=== PATIENT | female | born 1965 | race Caucasian/White ===

== ENCOUNTER 2024-04-26 17:04 | Inpatient (IN) ==
[2024-04-26] MEDS: OPTIRAY 320 125ml IV ONE (17:12)
--- NOTE | 2024-04-26 17:28 | Emergency Department Note ---
Impression & Plan Expressive aphasia, Acute right-sided weakness ED Provider Note Diagnosis: Expressive aphasia, slurred speech, right arm and leg drift Disposition: Admission CHIEF COMPLAINT: Expressive aphasia HPI: Patient is a 58-year-old female presenting from work across the street where she started with expressive aphasia and slurred speech. Patient reportedly last seen normal at 4:15 PM today. Patient is not on reported blood thinners. Patient has no history of CVA. Patient well no evaluation in the emergency room now has right arm drift and right leg drift. PAST MEDICAL HISTORY: See Below PAST SURGICAL HISTORY: See Below SOCIAL HISTORY: See Below HOME MEDICATIONS: See Below ALLERGIES: See Below VITALS: See Below PHYSICAL EXAMINATION: GENERAL: Well appearing, well nourished, NAD, non-toxic. EYE EXAM: Normal conjunctiva. OROPHARYNX: Moist mucus membranes. Grossly normal dentition. NECK: Supple, LUNGS: Clear to auscultation. Normal chest wall mechanics. HEART: NSR ABDOMEN: Abdomen soft, non-tender, normo-active bowel sounds, no masses, no rebound or guarding BACK: No CVA TTP. SKIN: No rashes and no bruising. UPPER EXTREMITIES: Upper extremities are grossly normal LOWER EXTREMITIES: Grossly normal, no edema. NEURO EXAM: A&O x3,, slurred speech, expressive aphasia, right arm drift right leg drift, normal sensation in face arms and legs PSYCH: Cooperative MEDICAL DECISION MAKING: History obtained from: Patient ER Course: Patient is a 58-year-old female presenting with expressive aphasia slurred speech and right-sided weakness. Patient symptoms reportedly started 1 hour prior to arrival. Patient CT scan noncontrast negative for intracranial hemorrhage. Patient found to have no large vessel occlusions. Patient's case was immediately discussed with stroke neurology team who evaluated her on the camera at bedside. Patient was offered TNK but declined. 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 Patient did have improvement in her speech while in the emergency room as well as improvement in the drift in her right arm and leg. Patient's case discussed with [facility] hospitalist team. Labs (independently interpreted) are significant for: No electrolyte abnormalities EKG interpretation (independently interpreted): Normal sinus rhythm no ST segment elevation or depression Medications given: Baby aspirin Consultants: Teleneurology Dr. Carmine العراقي evaluated patient on camera for potential TNK. Patient had full evaluation and was given the risk-benefit of TNK and given the option to receive the medication. Patient decided against receiving the medication because her symptoms were improving. Dr. العراقي recommended giving baby aspirin admitting to the hospital for further stroke workup. Triage Nursing notes reviewed and agree them. Vital Signs: reviewed and remarkable for: no significant abnormalities Past Med/Surg History Problem List (Updated 04/26/24 @ 18:30 by Asaf Sanchez DO) Acute right-sided weakness (Acute) Expressive aphasia (Acute) History of tobacco use Asthma Pulmonary nodules Medical History Rotator cuff arthropathy of right shoulder Surgical History Total knee replacement status Family History Mother Cancer Social History Smoking Status: Former smoker Hx Alcohol Use: No Hx Substance Use: No Preferred Language: Yakut Feels Safe at Home: Yes Allergies Allergies Allergy/AdvReac Type Severity Reaction Status Date / Time pollen extracts Allergy Intermediate ITCHY Verified 11/09/23 13:17 EYES, SNEEZING, CONGESTION Home Meds Home Medications Medication Instructions Recorded Confirmed atorvastatin 80 mg tablet 80 mg PO HS 10/11/23 04/26/24 buspirone 7.5 mg tablet 7.5 mg PO BID 10/11/23 04/26/24 cholecalciferol (vitamin D3) 25 25 mcg PO QAM 10/11/23 04/26/24 mcg (1,000 unit) capsule (Vitamin D3) venlafaxine 75 mg capsule,extended 75 mg PO HS 10/11/23 04/26/24 release 24 hr meclizine 12.5 mg tablet 12.5 mg PO TID 04/26/24 04/26/24 Results & Data (ED) Vital Signs Vital Signs - 24 hr 04/26/24 17:00 04/26/24 17:10 04/26/24 18:03 Temperature 36.8 C Temperature Source Oral Pulse Rate 79 Pulse Rate [Right Finger] 88 Respiratory Rate 16 16 Respiratory Effort / Characteristics Non-Labored Spontaneous Respiratory Depth Normal Blood Pressure 130/89 Blood Pressure [Right Arm] 139/84 Blood Pressure Mean 104 Blood Pressure Mean [Right Arm] 102 Pulse Oximetry 95 Sepsis Recent Fever Within 48 Hours No Sepsis New/Unexplained Change in Mental Status Yes Sepsis Action Taken by Nursing No Action Required 04/26/24 18:07 Temperature Temperature Source Pulse Rate 89 Pulse Rate [Right Finger] Respiratory Rate Respiratory Effort / Characteristics Respiratory Depth Blood Pressure Blood Pressure [Right Arm] Blood Pressure Mean Blood Pressure Mean [Right Arm] Pulse Oximetry Sepsis Recent Fever Within 48 Hours Sepsis New/Unexplained Change in Mental Status Sepsis Action Taken by Nursing Laboratory Data 04/26/24 17:27 04/26/24 17:27 Lab Results 04/26/24 04/26/24 04/26/24 Range/Units 17:27 17:28 17:31 WBC 6.24 (4.8-10.8) K/ul RBC 4.19 L (4.20-5.40) M/uL Hgb 12.1 (12.0-16.0) g/dl POC Hgb 12.2 (12.0-16.0) g/dl Hct 36.5 L (37.0-47.0) % POC Hct 36 L (37-47) % MCV 87.1 (80.0-100.0) fL MCH 28.9 (25.0-34.0) pg MCHC 33.2 (32.0-36.0) g/dL RDW Std Deviation 42.1 (36.4-46.3) fL RDW Coeff of Ariel 13.3 (11.5-14.5) % Plt Count 202 (130-400) K/uL MPV 10.3 (9.4-12.4) fL Immature Gran % (Auto) 0.3 % Neut % (Auto) 57.7 % Lymph % (Auto) 26.9 % [place] % (Auto) 9.6 % Eos % (Auto) 4.2 % Baso % (Auto) 1.3 % Neut # (Auto) 3.60 (1.40-6.50) K/uL Lymph # (Auto) 1.68 (1.20-3.40) K/uL [place] # (Auto) 0.60 H (0.11-0.59) K/uL Eos # (Auto) 0.26 (0.00-0.50) K/uL Baso # (Auto) 0.08 (0.00-0.20) K/uL Immature Gran # (Auto) 0.02 (0.01-0.20) K/uL PT 10.9 (9.0-12.0) Seconds INR 1.0 (0.9-1.1) APTT 25 (21-31) Seconds PTT Ratio 0.9 POC Sodium 138 (135-144) mmol/L Sodium 137 (136-145) mmol/L POC Potassium 3.8 (3.3-5.0) mmol/L Potassium 3.8 (3.5-5.1) mmol/L POC Chloride 101 (101-112) mmol/L Chloride 104 (98-107) mmol/L Carbon Dioxide 28 (21-32) mmol/L POC Total CO2 24 (24-31) mmol/L Anion Gap 5 (3-11) POC Anion Gap 18.0 (16-25) mmol/L POC BUN 16 (7-18) mg/dl BUN 16 (6-23) mg/dl Creatinine 0.87 (0.6-1.2) mg/dl POC Creatinine 0.9 (0.6-1.3) mg/dl Est Cr Clr Drug Dosing 77.9 ml/min eGFR 77.18 BUN/Creatinine Ratio 18.4 (10-20) Glucose 110 H (70-99(Fasting)) mg/dl POC Glucose 116 H (70-99) mg/dl POC Glucose (other) 105 H (70-99) mg/dl Calcium 8.9 (8.6-10.3) mg/dl POC Ioniz Calcium Jennifer 1.20 (1.12-1.32) mmol/l Magnesium 1.8 (1.7-2.4) mg/dl Total Bilirubin 0.4 (0.2-1.0) mg/dl AST 16 (13-39) U/L ALT 19 (7-52) U/L Alkaline Phosphatase 66 (34-104) U/L Troponin I High Sens < 2.3 (0-14) pg/ml Total Protein 6.1 (6.0-8.3) gm/dl Albumin 3.7 (3.4-5.0) gm/dl Globulin 2.4 L (2.5-4.0) gm/dl Albumin/Globulin Ratio 1.5 (0.9-2) Administered Medications Discontinued Medications Aspirin (Aspirin 81 Mg Ectab) 81 mg PO NOW STA Stop: 04/26/24 17:55 Last Admin: 04/26/24 18:25 Dose: 81 mg Documented By: MR Ioversol (Optiray 320 125ml) 118 ml IV ONCE ONE Stop: 04/26/24 17:13 Last Admin: 04/26/24 17:12 Dose: 118 ml Documented By: [facility] Data Radiologist's Impression: Head CT 04/26/24 17:10 EXAMINATION: Head CT without CLINICAL HISTORY: PRIORS: None TECHNIQUE: Contiguous axial images were obtained through the head without the use of intravenous contrast. Sagittal and coronal reformations are supplied. FINDINGS: Appropriate parenchymal volume is noted. Weaver-white differentiation is preserved. No edema or midline shift. No intra-axial or extra-axial hemorrhage. Ventricles are normal in size and configuration. Brainstem and cerebellum have a normal appearance. Calvarium unremarkable. Paranasal sinuses and mastoid air cells are well-pneumatized. Globes are intact. No retrobulbar abnormality. IMPRESSION: No CT evidence of an acute intracranial abnormality. Findings discussed with Dr. Sanchez in the emergency department at 5:27 PM on 04/26/2024 Electronically signed by Ale Malhotra 04-26-2024 5:29 PM Head CTA 04/26/24 17:10 EXAM: CTA head with CLINICAL HISTORY: Neurodeficit, acute stroke suspected TECHNIQUE: Contiguous CTA axial images were obtained through the head after the administration of intravenous contrast. Sagittal and coronal reformations are supplied. PRIORS: None FINDINGS: The left vertebral artery is extremely diminutive at the level of the skull base. Right vertebral artery is normal in caliber, both form the basilar artery. No basilar artery aneurysm. [place] is patent. No thrombus or hemodynamically significant stenosis. No aneurysmal dilatation or jesus aneurysm. No enhancing mass in the brain. IMPRESSION: No CTA evidence of an acute vascular abnormality. Electronically signed by Ale Malhotra 04-26-2024 5:41 PM Neck CTA 04/26/24 17:10 EXAM: CT angio neck with con CLINICAL HISTORY: Neurodeficit, acute stroke suspected TECHNIQUE: Contiguous CTA axial images were obtained through the neck with the administration of intravenous contrast. Sagittal and coronal reformations are supplied. MIPS are supplied. COMPARISON: None FINDINGS: A left-sided aortic arch is present. Takeoff of the great vessels is unremarkable with no atherosclerotic disease. No significant atherosclerotic plaque involving the carotid bulb, internal or external carotid arteries. The internal carotid arteries entered the skull base normally with no thrombus or hemodynamically significant stenosis. Left vertebral artery is extremely diminutive throughout its course, not visualized in the mid cervical spine, and reconstitutes at the level of the C2 vertebral body forming the basilar artery with the right vertebral artery. The right vertebral artery is patent with a normal appearance. The right vertebral artery forms the basilar artery. A thyroid cyst is noted on the left. IMPRESSION: 1. 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 2. Patent carotid arteries with no atherosclerotic plaque or hemodynamically significant stenosis. Electronically signed by Ale Malhotra 04-26-2024 5:41 PM Discharge Plan Visit Data Chief Complaint: Stroke Alert ED Provider: Asaf Sanchez Discharge Problem: Expressive aphasia, Acute right-sided weakness Forms Stand Alone Forms: [facility] Companion Prescriptions Prescriptions: No Action atorvastatin 80 mg tablet 80 mg PO HS venlafaxine 75 mg capsule,extended release 24hr 75 mg PO HS buspirone 7.5 mg tablet 7.5 mg PO BID cholecalciferol (vitamin D3) [Vitamin D3] 25 mcg (1,000 unit) Capsule 25 mcg PO QAM meclizine 12.5 mg tablet 12.5 mg PO TID Referrals Referrals: Carrington Hidalgo MD [Primary Care Provider] -
--- NOTE | 2024-04-26 17:41 | CT Scan Report ---
EXAM: CTA head with CLINICAL HISTORY: Neurodeficit, acute stroke suspected TECHNIQUE: Contiguous CTA axial images were obtained through the head after the administration of intravenous contrast. Sagittal and coronal reformations are supplied. PRIORS: None FINDINGS: The left vertebral artery is extremely diminutive at the level of the skull base. Right vertebral artery is normal in caliber, both form the basilar artery. No basilar artery aneurysm. [place] is patent. No thrombus or hemodynamically significant stenosis. No aneurysmal dilatation or jesus aneurysm. No enhancing mass in the brain. IMPRESSION: No CTA evidence of an acute vascular abnormality. Electronically signed by Ale Malhotra 04-26-2024 5:41 PM
--- NOTE | 2024-04-26 17:41 | CT Scan Report ---
EXAM: CT angio neck with con CLINICAL HISTORY: Neurodeficit, acute stroke suspected TECHNIQUE: Contiguous CTA axial images were obtained through the neck with the administration of intravenous contrast. Sagittal and coronal reformations are supplied. MIPS are supplied. COMPARISON: None FINDINGS: A left-sided aortic arch is present. Takeoff of the great vessels is unremarkable with no atherosclerotic disease. No significant atherosclerotic plaque involving the carotid bulb, internal or external carotid arteries. The internal carotid arteries entered the skull base normally with no thrombus or hemodynamically significant stenosis. Left vertebral artery is extremely diminutive throughout its course, not visualized in the mid cervical spine, and reconstitutes at the level of the C2 vertebral body forming the basilar artery with the right vertebral artery. The right vertebral artery is patent with a normal appearance. The right vertebral artery forms the basilar artery. A thyroid cyst is noted on the left. IMPRESSION: 1. 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 2. Patent carotid arteries with no atherosclerotic plaque or hemodynamically significant stenosis. Electronically signed by Ale Malhotra 04-26-2024 5:41 PM
[2024-04-26 17:42] LABS: iSTAT Creatinine 0.9 mg/dl (0.6-1.3); iSTAT Hemoglobin 12.2 g/dl (12.0-16.0); iSTAT Ionized Calcium 1.2 mmol/l (1.12-1.32); iSTAT Potassium 3.8 mmol/L (3.3-5.0)
[2024-04-26 17:54] LABS: Basophils # (auto) 0.08 K/uL (0.00-0.20); Basophils % (auto) 1.3 %; Eosinophils # (auto) 0.26 K/uL (0.00-0.50); Eosinophils % (auto) 4.2 %; Hematocrit (blood only) 36.5 % (37.0-47.0); Hemoglobin 12.1 g/dl (12.0-16.0); Immature Granulocytes # (auto) 0.02 K/uL (0.01-0.20); Immature Granulocytes % (auto) 0.3 %; Lymphocytes # (auto) 1.68 K/uL (1.20-3.40); Lymphocytes % (auto) 26.9 %; Mean Corpuscular Hemoglobin 28.9 pg (25.0-34.0); Mean Corpuscular Hgb Conc 33.2 g/dL (32.0-36.0); Mean Corpuscular Volume 87.1 fL (80.0-100.0); Mean Platelet Volume 10.3 fL (9.4-12.4); Monocytes % (auto) 9.6 %; Neutrophils % (auto) 57.7 %; Platelet Count 202 K/uL (130-400); RDW Coefficient of Variation 13.3 % (11.5-14.5); RDW Standard Deviation 42.1 fL (36.4-46.3); Red Blood Count 4.19 M/uL (4.20-5.40); White Blood Count 6.24 K/ul (4.8-10.8)
[2024-04-26 17:58] LABS: Alanine Aminotransferase 19 U/L (7-52); Albumin Globulin Ratio 1.5 (0.9-2); Albumin Level 3.7 gm/dl (3.4-5.0); Alkaline Phosphatase 66 U/L (34-104); Anion Gap 5 (3-11); Aspartate Aminotransferase 16 U/L (13-39); BUN Creatinine Ratio 18.4 (10-20); Bilirubin,Total 0.4 mg/dl (0.2-1.0); Blood Urea Nitrogen 16 mg/dl (6-23); Calcium 8.9 mg/dl (8.6-10.3); Carbon Dioxide 28 mmol/L (21-32); Chloride 104 mmol/L (98-107); Creatinine Clr Calc Pharmacy 77.9 ml/min; Globulin 2.4 gm/dl (2.5-4.0); Glucose 110 mg/dl (70-99(Fasting)); Magnesium 1.8 mg/dl (1.7-2.4); Potassium 3.8 mmol/L (3.5-5.1); Sodium 137 mmol/L (136-145); Total Protein 6.1 gm/dl (6.0-8.3)
[2024-04-26 18:04] LABS: Troponin I High Sensitivity < 2.3 pg/ml (0-14)
[2024-04-26 18:07] LABS: Partial Thromboplastin Ratio 0.9; Partial Thromboplastin Time 25 Seconds (21-31); Prothrombin Time 10.9 Seconds (9.0-12.0)
[2024-04-26] MEDS: ASPIRIN 81 MG ECTAB PO STA (18:25)
--- NOTE | 2024-04-26 18:29 | History & Physical Report ---
Date of Service April 26, 2024 Assessment & Plan (1) Stroke-like symptoms: (2) Dizziness: Plan: Patient is 58 year old female with PMH dyslipidemia, asthma, anxiety, depression presented to ER with c/o stroke like symptoms that occurred this afternoon. 1615 today with onset dizziness with standing followed by reported garbled speech by co-workers and reported tingling sensation of lips. Intermittent dizziness x 3 days. In ER afebrile, BP: 139/84, P: 88, R: 16, 95% on room air Upon ER arrival was noted to have right arm and right leg drift. Since being in ER has had improvement of her speech and extremity symptoms. Reports frontal ARNOLD and feels exhausted. In ER had neurology telestroke and TNK was discussed however patient chose to defer at this time since having improvement of her symptoms. Glucose: 110, no significant electrolyte abnormality, negative troponin CT head: No CT evidence of an acute intracranial abnormality. CT head: No CTA evidence of an acute vascular abnormality. CTA neck: Extremely diminutive and/or partially occluded left vertebral artery, age-indeterminate. Patent carotid arteries with no atherosclerotic plaque or hemodynamically significant stenosis. DDx: TIA, CVA, vertigo In ER given aspirin 81mg Tele to monitor for arrhythmias Lipid panel, A1c, TSH in AM MRI Brain Echo with bubble study Aspiration precautions PT/OT consult Continue home atorvastatin Start aspirin Allow permissive HTN Neurology consult (3) Dyslipidemia: Plan: Continue home atorvastatin (4) Anxiety and depression: Plan: Continue home venlafaxine, buspirone DVT Prophylaxis SCDs for now Admit telemetry Full Code as per discussion with pt Follows with Dr Carrington Hidalgo in [place], [place] for routine care Pt was seen and care coordinated with Dr Puga. See addendum I spent a total of 65 minutes reviewing notes, outpatient records, labs, medication, coordinating, documenting and providing care for this patient excluding time spent in the performance of separately billed services. History of Present Illness Chief Complaint: stroke like symptoms Primary Care Provider: Carrington Hidalgo MD Patient is 58 year old female with PMH dyslipidemia, asthma, anxiety, depression presented to ER with c/o stroke like symptoms that occurred this afternoon. Tuesday morning woke up for work and getting ready had started with dizziness described as room spinning with nausea and states lowered herself to floor until symptoms eased. She reports went to PCP on Tuesday for the dizziness and was prescribed Meclizine. Reports the dizziness had improved but still present with certain movements. States at work today and stood up and had dizziness described as spinning and felt lightheaded and reports fell against table. Denies LOC. 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 It is reported patient couldn't make a fist with her right hand. She reports tingling of lips and face. No facial droop was reported by co- workers. Upon ER arrival was noted to have right arm and right leg drift. Since being in ER has had improvement of her speech. She states feels exhausted. She reports frontal ARNOLD since being in ER. In ER had neurology telestroke and TNK was discussed however patient chose to defer at this time since having improvement of her symptoms. Further history patient reports a couple of weeks ago had chest pain and reports some increased SOB past couple of weeks with some wheezing and dry cough. Patient states in September 2023 had episode of dizziness, nausea, and diaphoresis that resolved until this week. Denies fever/chills, diaphoresis, V/D/C, vision changes, neck pain, palpitations, rhinorrhea, abdominal pain, extremity edema, rashes, urinary symptoms, hearing loss, tinnitus, seizure like activity, loss control of bowel/bladder, Per chart review history carotid Doppler 11/10/2023: Less than 50% stenosis bilateral internal carotid arteries, antegrade flow bilateral vertebral arteries, bilateral subclavian artery signals normal consistent with no significant arterial occlusion Allergies Allergy/AdvReac Type Severity Reaction Status Date / Time pollen extracts Allergy Intermediate ITCHY Verified 11/09/23 13:17 EYES, SNEEZING, CONGESTION Home Medications Medication Instructions Recorded Confirmed Type atorvastatin 80 mg tablet 80 mg PO HS 10/11/23 04/26/24 History buspirone 7.5 mg tablet 7.5 mg PO BID 10/11/23 04/26/24 History venlafaxine 75 mg capsule,extended 75 mg PO HS 10/11/23 04/26/24 History release 24 hr ascorbic acid (vitamin C) 1,000 mg 1 g PO DAILY 04/26/24 04/26/24 History tablet (Vitamin C) meclizine 12.5 mg tablet 12.5 mg PO TID PRN Dizziness 04/26/24 04/26/24 History Past Med/Surg History Problem List (Updated 04/26/24 @ 19:39 by Polly Farah PA-C) Dyslipidemia Dizziness Stroke-like symptoms Anxiety and depression Acute right-sided weakness (Acute) Expressive aphasia (Acute) History of tobacco use Asthma Pulmonary nodules Medical History Rotator cuff arthropathy of right shoulder Surgical History Total knee replacement status left knee Family History Mother Cancer gastric/stomach Other Heart disease Social History Smoking Status: Former smoker Hx Alcohol Use: No Hx Substance Use: No Preferred Language: Russian Feels Safe at Home: Yes Review of Systems Review of Systems: All systems reviewed & are unremarkable except as noted in HPI & below Physical Exam Physical Exam: PE per Dr Puga Results & Data Results & Data Vital Signs (Past 12 Hours) Vital Signs Temp Pulse Pulse Resp BP BP Pulse Ox 04/26/24 18:07 89 04/26/24 18:03 79 16 130/89 95 04/26/24 17:00 36.8 C 88 16 139/84 Laboratory Results Short CBC 04/26/24 Range/Units 17:27 WBC 6.24 (4.8-10.8) K/ul Hgb 12.1 (12.0-16.0) g/dl Hct 36.5 L (37.0-47.0) % Plt Count 202 (130-400) K/uL BMP 04/26/24 17:27 Sodium 137 Potassium 3.8 Chloride 104 Carbon Dioxide 28 BUN 16 Creatinine 0.87 Glucose 110 H Calcium 8.9 Liver Function 04/26/24 Range/Units 17:27 Total Bilirubin 0.4 (0.2-1.0) mg/dl AST 16 (13-39) U/L ALT 19 (7-52) U/L Alkaline Phosphatase 66 (34-104) U/L Albumin 3.7 (3.4-5.0) gm/dl Diagnostic Findings Head CT 04/26/24 17:10 EXAMINATION: Head CT without CLINICAL HISTORY: PRIORS: None TECHNIQUE: Contiguous axial images were obtained through the head without the use of intravenous contrast. Sagittal and coronal reformations are supplied. FINDINGS: Appropriate parenchymal volume is noted. Weaver-white differentiation is preserved. No edema or midline shift. No intra-axial or extra-axial hemorrhage. Ventricles are normal in size and configuration. Brainstem and cerebellum have a normal appearance. Calvarium unremarkable. Paranasal sinuses and mastoid air cells are well-pneumatized. Globes are intact. No retrobulbar abnormality. IMPRESSION: No CT evidence of an acute intracranial abnormality. Findings discussed with Dr. Sanchez in the emergency department at 5:27 PM on 04/26/2024 Electronically signed by Ale Malhotra 04-26-2024 5:29 PM Head CTA 04/26/24 17:10 EXAM: CTA head with CLINICAL HISTORY: Neurodeficit, acute stroke suspected TECHNIQUE: Contiguous CTA axial images were obtained through the head after the administration of intravenous contrast. Sagittal and coronal reformations are supplied. PRIORS: None FINDINGS: The left vertebral artery is extremely diminutive at the level of the skull base. Right vertebral artery is normal in caliber, both form the basilar artery. No basilar artery aneurysm. [place] is patent. No thrombus or hemodynamically significant stenosis. No aneurysmal dilatation or jesus aneurysm. No enhancing mass in the brain. IMPRESSION: No CTA evidence of an acute vascular abnormality. Electronically signed by Ale Malhotra 04-26-2024 5:41 PM Neck CTA 04/26/24 17:10 EXAM: CT angio neck with con CLINICAL HISTORY: Neurodeficit, acute stroke suspected TECHNIQUE: Contiguous CTA axial images were obtained through the neck with the administration of intravenous contrast. Sagittal and coronal reformations are supplied. MIPS are supplied. COMPARISON: None FINDINGS: A left-sided aortic arch is present. Takeoff of the great vessels is unremarkable with no atherosclerotic disease. No significant atherosclerotic plaque involving the carotid bulb, internal or external carotid arteries. The internal carotid arteries entered the skull base normally with no thrombus or hemodynamically significant stenosis. Left vertebral artery is extremely diminutive throughout its course, not visualized in the mid cervical spine, and reconstitutes at the level of the C2 vertebral body forming the basilar artery with the right vertebral artery. The right vertebral artery is patent with a normal appearance. The right vertebral artery forms the basilar artery. A thyroid cyst is noted on the left. IMPRESSION: 1. 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 2. Patent carotid arteries with no atherosclerotic plaque or hemodynamically significant stenosis. Electronically signed by Ale Malhotra 04-26-2024 5:41 PM ECG Additional Comments: Normal sinus rhythm, no ST elevation per my interpretation Supervising Physician Co-Signing Physician Notes Patient is a 58-year-old female with history of asthma, hyperlipidemia, mood disorder, vitamin D deficiency, pulmonary nodule and other medical problems presents with history of dizziness which he describes as room spinning, associated with nausea which started on Tuesday and was prescribed meclizine which did not help. Patient had similar episode today at around 4:15 PM at work and was noticed to have garbled speech associated with tingling of lips, face, frontal headache, right arm and right leg drift. Patient was evaluated by telestroke and offered TNK which patient deferred. Symptoms currently improved. Family believes her speech is still low but clear currently. Please review HPI for complete details of presentation. I personally reviewed blood work and imaging studies. CT head showed no acute intracranial abnormality. Head CTA showed no evidence of acute vascular abnormality. Neck CTA showed possible partially occluded left vertebral artery age-indeterminate. EKG showed normal sinus rhythm, QTc 437. Physical Exam: Vitals signs as noted above General Appearance: Obese, no apparent distress Head: normocephalic, Atraumatic Eyes: normal inspection, EOMI Neck: supple, Trachea midline Respiratory/Chest: Decreased breath sounds, CTA, No accessory muscle use Cardiovascular: S1, S2, No murmur Abdomen/GI:Soft, Non tender, Bowel sounds present Extremities/Musculoskeletal:normal inspection, no edema Neurologic/Psych:AAOX3, no focal neurological deficits Skin: normal color, warm Strokelike symptoms R/O CVA Dizziness DD: Vertigo, complex migraine Elevated blood pressure likely situational Started on aspirin Continue statin Will obtain complete neurological workup including MRI brain, echo, lipid panel, A1c Neurochecks Neurology consulted Allow permissive hypertension Monitor blood pressure closely PT OT, speech eval Fall precautions Further management based on pending workup I personally interviewed and examined at bedside. Patient's care is coordinated with Polly Farah PA-C. I have reviewed the advanced practitioner's documentation, and I agree with plan of care. Please refer to the documentation above for details of patient's presentation and for discussion of other issues. I spent a total [id number] coordinating, documenting, and providing care for this patient excluding time spent in the performance of separately billed services.
[2024-04-26] MEDS: GADOBUTROL 65ML VIAL IV ONE (21:00)
[2024-04-26] MEDS ORDERED: ONDANSETRON INJ 2 MG/ML 2 ML VIAL IV PRN (21:48)
[2024-04-26] MEDS ORDERED: POLYETHYLENE (MIRALAX) 17 GM PACK PO PRN (21:48)
[2024-04-26] MEDS ORDERED: PHARMACIST DISCHARGE MED REC CONSULT PRN (21:48)
[2024-04-26] MEDS: busPIRone 7.5 MG TAB PO SCH (22:48)
[2024-04-26] MEDS: ACETAMINOPHEN 325 MG TAB PO PRN (22:48)
[2024-04-26] MEDS: ATORVASTATIN 40 MG TAB PO SCH (22:48)
[2024-04-26] MEDS: VENLAFAXINE HCL XR 75 MG CAPXR PO SCH (22:48)
[2024-04-26] MEDS: MECLIZINE HCL 25 MG TAB PO PRN (22:48)
--- NOTE | 2024-04-26 23:16 | Magnetic Resonance Report ---
Exam(s): MRI HEAD W/WO Contrast IV Amt: 8mL Gadavist given IV EXAM: MR Head Without and With Intravenous Contrast CLINICAL HISTORY: Reason for exam: stroke like symptoms. TECHNIQUE: Magnetic resonance images of the head/brain without and with intravenous contrast in multiple planes. CONTRAST: Patient received 8mL Gadavist given IV of IV contrast COMPARISON: References made to prior head CT performed earlier on the same date. FINDINGS: Brain: Subtle T2/flair signal hyperintensity scattered throughout the subcortical and deep white matter consistent with very mild ischemic microangiopathy. No hemorrhage. Ventricles: Unremarkable. No ventriculomegaly. Bones/joints: Unremarkable. No acute fracture. Sinuses: Polyp or mucus retention cyst right ethmoid sinus inflammatory maxillary sinus. No acute sinusitis. Mastoid air cells: Unremarkable as visualized. No mastoid effusion. Orbits: Unremarkable as visualized. IMPRESSION: No acute findings in the head/brain. Mild ischemic microangiopathy Electronically signed by: Carrington Moura MD 04/26/24 23:15 PM
[2024-04-27 07:05] LABS: Hematocrit (blood only) 40.6 % (37.0-47.0); Hemoglobin 13.4 g/dl (12.0-16.0); Mean Corpuscular Volume 87.9 fL (80.0-100.0); Mean Platelet Volume 10.8 fL (9.4-12.4); Platelet Count 213 K/uL (130-400); RDW Coefficient of Variation 13.5 % (11.5-14.5); RDW Standard Deviation 43.4 fL (36.4-46.3); Red Blood Count 4.62 M/uL (4.20-5.40); White Blood Count 5.93 K/ul (4.8-10.8)
[2024-04-27 07:41] LABS: Estimated Average Glucose 126 mg/dl
[2024-04-27 07:46] LABS: Thyroid Stimulating Hormone 2.518 uIu/ml (0.300-4.500)
[2024-04-27 09:53] LABS: Calcium 9.5 mg/dl (8.6-10.3)
[2024-04-27 10:00] LABS: BUN Creatinine Ratio 19.3 (10-20); Chol HDL Ratio 3.8 (0-5); Creatinine Clr Calc Pharmacy 87.7 ml/min
[2024-04-27 10:03] LABS: Potassium 4.2 mmol/L (3.5-5.1)
[2024-04-27] MEDS: ASPIRIN 81 MG ECTAB PO SCH (10:03)
--- NOTE | 2024-04-27 11:34 | Electrocardiogram Report ---
Test Reason : Blood Pressure : */* mmHG Vent. Rate : 94 BPM Atrial Rate : 94 BPM P-R Int : 186 ms QRS Dur : 78 ms QT Int : 350 ms P-R-T Axes : 41 -29 16 degrees QTcB Int : 437 ms Normal sinus rhythm Normal ECG When compared with ECG of 11-Oct-2023 12:10, No significant change was found Confirmed by Semaj Day ([id number]) on 04/27/2024 11:34:37 AM Referred By: REFERRED SELF Confirmed By: Semaj Day
--- NOTE | 2024-04-27 14:50 | Hospitalist Progress Note ---
Date of Service April 27, 2024 Assessment & Plan (1) Stroke-like symptoms: (2) Dizziness: Plan: Patient is 58 year old female with PMH dyslipidemia, asthma, anxiety, depression presented to ER with c/o stroke like symptoms that occurred this afternoon. 1615 today with onset dizziness with standing followed by reported garbled speech by co-workers and reported tingling sensation of lips. Intermittent dizziness x 3 days. In ER afebrile, BP: 139/84, P: 88, R: 16, 95% on room air Upon ER arrival was noted to have right arm and right leg drift. Since being in ER has had improvement of her speech and extremity symptoms. Reports frontal ARNOLD and feels exhausted. In ER had neurology telestroke and TNK was discussed however patient chose to defer at this time since having improvement of her symptoms. Glucose: 110, no significant electrolyte abnormality, negative troponin CT head: No CT evidence of an acute intracranial abnormality. CTA head: No CTA evidence of an acute vascular abnormality. CTA neck: Extremely diminutive and/or partially occluded left vertebral artery, age-indeterminate. Patent carotid arteries with no atherosclerotic plaque or hemodynamically significant stenosis. MRI Brain FINDINGS: Brain: Subtle T2/flair signal hyperintensity scattered throughout the subcortical and deep white matter consistent with very mild ischemic microangiopathy. No hemorrhage. Ventricles: Unremarkable. No ventriculomegaly. Bones/joints: Unremarkable. No acute fracture. Sinuses: Polyp or mucus retention cyst right ethmoid sinus inflammatory maxillary sinus. No acute sinusitis. Mastoid air cells: Unremarkable as visualized. No mastoid effusion. Orbits: Unremarkable as visualized. IMPRESSION: No acute findings in the head/brain. Mild ischemic microangiopathy DDx: TIA, CVA, vertigo In ER given aspirin 81mg Tele to monitor for arrhythmias Lipid panel - LDL 76 A1c 6.0% TSH 2.5 Echo with bubble study - LV normal size, moderate LVH, LV EF 60-65%, no interatrial shunt noted Aspiration precautions PT/OT consult Continue home atorvastatin Start aspirin Neurology consult pending (3) Dyslipidemia: Plan: Continue home atorvastatin (4) Anxiety and depression: Plan: Continue home venlafaxine, buspirone DVT Prophylaxis SCDs for now Admit telemetry Full Code as per discussion with pt Follows with Dr Carrington Hidalgo in [place], [place] for routine care Admission and Anticipated Discharge Date Admission Date: April 26, 2024 Subjective Pt seen in follow up of stroke-like symptoms Other symptoms resolved but pt has persistent dizziness Laying in bed in NAD, but also has headache worked with PT - seems that made her dizziness temporarily worse No fever, chills, chest pain, shortness of breath. No abd. pain n/v Review of Systems Review of Systems: All systems reviewed & are unremarkable except as noted in Subjective Physical Exam Physical Exam: General Appearance: Obese, no apparent distress Head: normocephalic, Atraumatic Eyes: normal inspection, EOMI Neck: supple Respiratory/Chest: Decreased breath sounds, CTA, No accessory muscle use Cardiovascular: S1, S2, No murmur Abdomen/GI:Soft, Non tender, Bowel sounds present Extremities/Musculoskeletal:normal inspection, no edema Neurologic/Psych:AAOX3, speech fluent, no facial asymmetry, moves extremities Skin: warm, dry Results & Data Results & Data Vital Signs (Past 12 Hours) Vital Signs Temp Pulse Pulse Resp BP Pulse Ox O2 Del Method 04/27/24 12:00 36.6 C 80 20 114/72 91 Room Air 04/27/24 08:00 36.6 C 77 20 112/70 91 Room Air 04/27/24 07:05 76 04/27/24 04:00 36.5 C 74 18 114/72 93 Room Air Laboratory Results 04/27/24 04/26/24 04/26/24 Range/Units 06:10 17:31 17:28 WBC 5.93 (4.8-10.8) K/ul RBC 4.62 (4.20-5.40) M/uL Hgb 13.4 (12.0-16.0) g/dl POC Hgb 12.2 (12.0-16.0) g/dl Hct 40.6 (37.0-47.0) % POC Hct 36 L (37-47) % MCV 87.9 (80.0-100.0) fL MCH 29.0 (25.0-34.0) pg MCHC 33.0 (32.0-36.0) g/dL RDW Std Deviation 43.4 (36.4-46.3) fL RDW Coeff of Ariel 13.5 (11.5-14.5) % Plt Count 213 (130-400) K/uL MPV 10.8 (9.4-12.4) fL Immature Gran % (Auto) % Neut % (Auto) % Lymph % (Auto) % [place] % (Auto) % Eos % (Auto) % Baso % (Auto) % Neut # (Auto) (1.40-6.50) K/uL Lymph # (Auto) (1.20-3.40) K/uL [place] # (Auto) (0.11-0.59) K/uL Eos # (Auto) (0.00-0.50) K/uL Baso # (Auto) (0.00-0.20) K/uL Immature Gran # (Auto) (0.01-0.20) K/uL PT (9.0-12.0) Seconds INR (0.9-1.1) APTT (21-31) Seconds PTT Ratio POC Sodium 138 (135-144) mmol/L Sodium 142 (136-145) mmol/L POC Potassium 3.8 (3.3-5.0) mmol/L Potassium 4.2 (3.5-5.1) mmol/L POC Chloride 101 (101-112) mmol/L Chloride 109 H (98-107) mmol/L Carbon Dioxide 24 (21-32) mmol/L POC Total CO2 24 (24-31) mmol/L Anion Gap 9 (3-11) POC Anion Gap 18.0 (16-25) mmol/L POC BUN 16 (7-18) mg/dl BUN 16 (6-23) mg/dl Creatinine 0.83 (0.6-1.2) mg/dl POC Creatinine 0.9 (0.6-1.3) mg/dl Est Cr Clr Drug Dosing 87.7 ml/min eGFR 81.66 BUN/Creatinine Ratio 19.3 (10-20) Glucose 105 H (70-99(Fasting)) mg/dl POC Glucose 116 H (70-99) mg/dl POC Glucose (other) 105 H (70-99) mg/dl Estimat Average Glucose 126 mg/dl Hemoglobin A1c 6.0 H (4.5-5.6) % Calcium 9.5 (8.6-10.3) mg/dl POC Ioniz Calcium Jennifer 1.20 (1.12-1.32) mmol/l Magnesium (1.7-2.4) mg/dl Total Bilirubin (0.2-1.0) mg/dl AST (13-39) U/L ALT (7-52) U/L Alkaline Phosphatase (34-104) U/L Troponin I High Sens (0-14) pg/ml Total Protein (6.0-8.3) gm/dl Albumin (3.4-5.0) gm/dl Globulin (2.5-4.0) gm/dl Albumin/Globulin Ratio (0.9-2) Triglycerides 131 (0-150) mg/dl Cholesterol 139 (0-200) mg/dl LDL Cholesterol, Calc 76 mg/dl VLDL Cholesterol, Calc 26 (0-30) mg/dl HDL Cholesterol 37 mg/dl Cholesterol/HDL Ratio 3.8 (0-5) TSH 2.518 (0.300-4.500) uIu/ml Blood Type Antibody Screen 04/26/24 Range/Units 17:27 WBC 6.24 (4.8-10.8) K/ul RBC 4.19 L (4.20-5.40) M/uL Hgb 12.1 (12.0-16.0) g/dl POC Hgb (12.0-16.0) g/dl Hct 36.5 L (37.0-47.0) % POC Hct (37-47) % MCV 87.1 (80.0-100.0) fL MCH 28.9 (25.0-34.0) pg MCHC 33.2 (32.0-36.0) g/dL RDW Std Deviation 42.1 (36.4-46.3) fL RDW Coeff of Ariel 13.3 (11.5-14.5) % Plt Count 202 (130-400) K/uL MPV 10.3 (9.4-12.4) fL Immature Gran % (Auto) 0.3 % Neut % (Auto) 57.7 % Lymph % (Auto) 26.9 % [place] % (Auto) 9.6 % Eos % (Auto) 4.2 % Baso % (Auto) 1.3 % Neut # (Auto) 3.60 (1.40-6.50) K/uL Lymph # (Auto) 1.68 (1.20-3.40) K/uL [place] # (Auto) 0.60 H (0.11-0.59) K/uL Eos # (Auto) 0.26 (0.00-0.50) K/uL Baso # (Auto) 0.08 (0.00-0.20) K/uL Immature Gran # (Auto) 0.02 (0.01-0.20) K/uL PT 10.9 (9.0-12.0) Seconds INR 1.0 (0.9-1.1) APTT 25 (21-31) Seconds PTT Ratio 0.9 POC Sodium (135-144) mmol/L Sodium 137 (136-145) mmol/L POC Potassium (3.3-5.0) mmol/L Potassium 3.8 (3.5-5.1) mmol/L POC Chloride (101-112) mmol/L Chloride 104 (98-107) mmol/L Carbon Dioxide 28 (21-32) mmol/L POC Total CO2 (24-31) mmol/L Anion Gap 5 (3-11) POC Anion Gap (16-25) mmol/L POC BUN (7-18) mg/dl BUN 16 (6-23) mg/dl Creatinine 0.87 (0.6-1.2) mg/dl POC Creatinine (0.6-1.3) mg/dl Est Cr Clr Drug Dosing 77.9 ml/min eGFR 77.18 BUN/Creatinine Ratio 18.4 (10-20) Glucose 110 H (70-99(Fasting)) mg/dl POC Glucose (70-99) mg/dl POC Glucose (other) (70-99) mg/dl Estimat Average Glucose mg/dl Hemoglobin A1c (4.5-5.6) % Calcium 8.9 (8.6-10.3) mg/dl POC Ioniz Calcium Jennifer (1.12-1.32) mmol/l Magnesium 1.8 (1.7-2.4) mg/dl Total Bilirubin 0.4 (0.2-1.0) mg/dl AST 16 (13-39) U/L ALT 19 (7-52) U/L Alkaline Phosphatase 66 (34-104) U/L Troponin I High Sens < 2.3 (0-14) pg/ml Total Protein 6.1 (6.0-8.3) gm/dl Albumin 3.7 (3.4-5.0) gm/dl Globulin 2.4 L (2.5-4.0) gm/dl Albumin/Globulin Ratio 1.5 (0.9-2) Triglycerides (0-150) mg/dl Cholesterol (0-200) mg/dl LDL Cholesterol, Calc mg/dl VLDL Cholesterol, Calc (0-30) mg/dl HDL Cholesterol mg/dl Cholesterol/HDL Ratio (0-5) TSH (0.300-4.500) uIu/ml Blood Type A Positive Antibody Screen NEGATIVE Medications Administered Current Inpatient Medications Acetaminophen (Acetaminophen 325 Mg Tab) 650 mg PO Q4H PRN PRN Reason: Pain or Fever Stop: 05/26/24 21:47 Last Admin: 04/27/24 10:04 Dose: 650 mg Aspirin (Aspirin 81 Mg Ectab) 81 mg PO DAILY [facility] Stop: 05/27/24 08:59 Last Admin: 04/27/24 10:03 Dose: 81 mg Atorvastatin Calcium (Atorvastatin 40 Mg Tab) 80 mg PO HS [facility] Stop: 05/26/24 21:47 Last Admin: 04/26/24 22:48 Dose: 80 mg Buspirone HCl (Buspirone 7.5 Mg Tab) 7.5 mg PO BID [facility] Stop: 05/26/24 21:47 Last Admin: 04/27/24 10:02 Dose: 7.5 mg Meclizine HCl (Meclizine Hcl 25 Mg Tab) 25 mg PO Q6H PRN PRN Reason: Dizziness or Vertigo Stop: 05/26/24 21:47 Last Admin: 04/27/24 10:10 Dose: 25 mg Miscellaneous Information (Pharmacist Discharge Med Rec Consult) 1 each N/A UD PRN PRN Reason: Consult Stop: 05/26/24 21:47 Ondansetron HCl (Ondansetron Inj 2 Mg/Ml 2 Ml Vial) 4 mg IV Q6H PRN PRN Reason: Nausea Stop: 05/26/24 21:47 Polyethylene Glycol (Polyethylene (Miralax) 17 Gm Pack) 17 gm PO DAILY PRN PRN Reason: Constipation Stop: 05/26/24 21:47 Venlafaxine HCl (Venlafaxine Hcl Xr 75 Mg Capxr) 75 mg PO HS [facility] Stop: 05/26/24 21:47 Last Admin: 04/26/24 22:48 Dose: 75 mg
[2024-04-27] MEDS: MAGNESIUM SULFATE / D5W 1 GM/100 ML BAG IV ONE (15:59)
[2024-04-27] MEDS: diphenhydrAMINE 50 MG/ML VIAL IV STA (15:59)
[2024-04-27] MEDS: KETOROLAC TROMETHAMINE 15 MG/ML VIAL IV STA (15:59)
--- NOTE | 2024-04-27 16:04 | Neurology Consultation ---
Date of Consultation April 27, 2024 Assessment & Plan (1) Dizziness: Amaya Ardon is a 58 yo F presenting with dizziness and transient neurologic symptoms without any cause found on testing. MRI is unremarkable, CTA reveals a diminutive LVA, likely anatomic variant. Suggest she remain on aspirin but suspect her symptoms are due to migraine. would trial a migraine cocktail. She can otherwise follow-up with us as an outpatient for further investigation if symptoms persist. -- Migraine cocktail - compazine, benadryl, toradol and magnesium -- Aspirin 81mg daily -- Can continue statin -- Ongoing therapy evals -- Neurology follow-up Telehealth Consultation Telehealth Information Telehealth Information: I performed this visit using a real-time telehealth connection between my location and the patients location ([facility]). After connecting through interactive tele-video, patient was identified by name and date of and/or wristband check.Patient (or authorized healthcare rep resentative) was informed that this was a telemedicine visit and it was being conducted confidentially over secure lines. My office door was closed and no one else was present in the room with me.Patient (or authorized healthcare technology sales representative) provided consent to proceed with the visit, expressed an understanding of privacy and security of the telemedicine visit, and gave permission to have a hospital technology sales representative in the room in order to assist with the visit and to conduct portions of the visit, as needed. I informed the patient (or authorized healthcare technology sales representative) that I reviewed their record and presented the opportunity for them to ask any questions regarding the visit today. The patient agreed to participate. History of Present Illness Reason for Consultation: Dizziness Requesting Physician: Dr. Burns Attending Physician: Catalino Burns MD History of Present Illness Amaya Ardon is a 58 yo F presenting with dizziness, headache and transient R sided numbness, weakness and slurred speech. She reportedly had similar dizziness in the past which resolved. Yesterday when she was dizzy she also had the associated numbness and weakness. She was seen in the ED by telestroke and TNK was not given. She reports having had a different episode this year with concern for a cardiac event but testing was negative. She has no hx of migraine or frequent headache. She was on aspirin around the time of the cardiac event. She also takes meclizine for dizziness which does seem to help. She felt well today until working with PT when she became dizzy again. Allergies Allergy/AdvReac Type Severity Reaction Status Date / Time pollen extracts Allergy Intermediate ITCHY Verified 11/09/23 13:17 EYES, SNEEZING, CONGESTION Home Medications Medication Instructions Recorded Confirmed Type atorvastatin 80 mg tablet 80 mg PO HS 10/11/23 04/26/24 History buspirone 7.5 mg tablet 7.5 mg PO BID 10/11/23 04/26/24 History venlafaxine 75 mg capsule,extended 75 mg PO HS 10/11/23 04/26/24 History release 24 hr ascorbic acid (vitamin C) 1,000 mg 1 g PO DAILY 04/26/24 04/26/24 History tablet (Vitamin C) meclizine 12.5 mg tablet 12.5 mg PO TID PRN Dizziness 04/26/24 04/26/24 History Patient History Medical History Rotator cuff arthropathy of right shoulder Surgical History Total knee replacement status left knee Family History Mother Cancer gastric/stomach Other Heart disease Social History Smoking Status: Former smoker Smoking End Date: 8 years ago; Hx Alcohol Use: No Hx Substance Use: No Preferred Language: Urdu Communication Ability: Effective Deicer Finisher Required: No Beliefs That Will Affect Care: None Current Living Situation: Spouse Other Information That Helps Us Care for You: No Feels Safe at Home: Yes Safety Concerns: Feels Safe At This Time Assistive Devices: Glasses Review of Systems +dizziness, frontal headache Physical Exam Neurological Examination: Mental Status: Awake and alert. Oriented to person, place, and time. Fluent. Comprehension intact. Affect appropriate. Cranial Nerves: II: pupils 3/3 to 2/2, kelley grossly intact. III/IV/: Versions intact without nystagmus, no gaze preference. V: Facial sensation symmetric to light touch VII: Facial expression symmetric Motor: Strength was symmetric and antigravity throughout. Pronator drift was absent. There were no abnormal movements. Coordination: Finger to nose and heel to alexander were intact. Reflexes: Unable to assess over telemedicine Results & Data Vital Signs (Past 12 Hours) Vital Signs Temp Pulse Pulse Resp BP Pulse Ox O2 Del Method 04/27/24 15:09 36.4 C L 92 H 16 124/77 94 Room Air 04/27/24 12:00 36.6 C 80 20 114/72 91 Room Air 04/27/24 08:00 36.6 C 77 20 112/70 91 Room Air 04/27/24 07:05 76 04/27/24 04:00 36.5 C 74 18 114/72 93 Room Air Laboratory Results Abnormal lab results 04/26/24 04/26/24 04/26/24 Range/Units 17:27 17:28 17:31 RBC 4.19 L (4.20-5.40) M/uL Hct 36.5 L (37.0-47.0) % POC Hct 36 L (37-47) % [place] # (Auto) 0.60 H (0.11-0.59) K/uL Chloride (98-107) mmol/L Glucose 110 H (70-99(Fasting)) mg/dl POC Glucose 116 H (70-99) mg/dl POC Glucose (other) 105 H (70-99) mg/dl Hemoglobin A1c (4.5-5.6) % Globulin 2.4 L (2.5-4.0) gm/dl 04/27/24 Range/Units 06:10 RBC (4.20-5.40) M/uL Hct (37.0-47.0) % POC Hct (37-47) % [place] # (Auto) (0.11-0.59) K/uL Chloride 109 H (98-107) mmol/L Glucose 105 H (70-99(Fasting)) mg/dl POC Glucose (70-99) mg/dl POC Glucose (other) (70-99) mg/dl Hemoglobin A1c 6.0 H (4.5-5.6) % Globulin (2.5-4.0) gm/dl Diagnostic Findings Head CT 04/26/24 17:10 EXAMINATION: Head CT without CLINICAL HISTORY: PRIORS: None TECHNIQUE: Contiguous axial images were obtained through the head without the use of intravenous contrast. Sagittal and coronal reformations are supplied. FINDINGS: Appropriate parenchymal volume is noted. Weaver-white differentiation is preserved. No edema or midline shift. No intra-axial or extra-axial hemorrhage. Ventricles are normal in size and configuration. Brainstem and cerebellum have a normal appearance. Calvarium unremarkable. Paranasal sinuses and mastoid air cells are well-pneumatized. Globes are intact. No retrobulbar abnormality. IMPRESSION: No CT evidence of an acute intracranial abnormality. Findings discussed with Dr. Sanchez in the emergency department at 5:27 PM on 04/26/2024 Electronically signed by Ale Malhotra 04-26-2024 5:29 PM Head CTA 04/26/24 17:10 EXAM: CTA head with CLINICAL HISTORY: Neurodeficit, acute stroke suspected TECHNIQUE: Contiguous CTA axial images were obtained through the head after the administration of intravenous contrast. Sagittal and coronal reformations are supplied. PRIORS: None FINDINGS: The left vertebral artery is extremely diminutive at the level of the skull base. Right vertebral artery is normal in caliber, both form the basilar artery. No basilar artery aneurysm. [place] is patent. No thrombus or hemodynamically significant stenosis. No aneurysmal dilatation or jesus aneurysm. No enhancing mass in the brain. IMPRESSION: No CTA evidence of an acute vascular abnormality. Electronically signed by Ale Malhotra 04-26-2024 5:41 PM Neck CTA 04/26/24 17:10 EXAM: CT angio neck with con CLINICAL HISTORY: Neurodeficit, acute stroke suspected TECHNIQUE: Contiguous CTA axial images were obtained through the neck with the administration of intravenous contrast. Sagittal and coronal reformations are supplied. MIPS are supplied. COMPARISON: None FINDINGS: A left-sided aortic arch is present. Takeoff of the great vessels is unremarkable with no atherosclerotic disease. No significant atherosclerotic plaque involving the carotid bulb, internal or external carotid arteries. The internal carotid arteries entered the skull base normally with no thrombus or hemodynamically significant stenosis. Left vertebral artery is extremely diminutive throughout its course, not visualized in the mid cervical spine, and reconstitutes at the level of the C2 vertebral body forming the basilar artery with the right vertebral artery. The right vertebral artery is patent with a normal appearance. The right vertebral artery forms the basilar artery. A thyroid cyst is noted on the left. IMPRESSION: 1. 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 2. Patent carotid arteries with no atherosclerotic plaque or hemodynamically significant stenosis. Electronically signed by Ale Malhotra 04-26-2024 5:41 PM Brain MRI 04/26/24 19:34 Exam(s): MRI HEAD W/WO Contrast IV Amt: 8mL Gadavist given IV EXAM: MR Head Without and With Intravenous Contrast CLINICAL HISTORY: Reason for exam: stroke like symptoms. TECHNIQUE: Magnetic resonance images of the head/brain without and with intravenous contrast in multiple planes. CONTRAST: Patient received 8mL Gadavist given IV of IV contrast COMPARISON: References made to prior head CT performed earlier on the same date. FINDINGS: Brain: Subtle T2/flair signal hyperintensity scattered throughout the subcortical and deep white matter consistent with very mild ischemic microangiopathy. No hemorrhage. Ventricles: Unremarkable. No ventriculomegaly. Bones/joints: Unremarkable. No acute fracture. Sinuses: Polyp or mucus retention cyst right ethmoid sinus inflammatory maxillary sinus. No acute sinusitis. Mastoid air cells: Unremarkable as visualized. No mastoid effusion. Orbits: Unremarkable as visualized. IMPRESSION: No acute findings in the head/brain. Mild ischemic microangiopathy Electronically signed by: Carrington Moura MD 04/26/24 23:15 PM
[2024-04-27] MEDS: PROCHLORPERAZINE 5 MG/ML 2 ML VIAL IV STA (16:12)
[2024-04-27] MEDS: PROCHLORPERAZINE 10 MG in SYRINGE 8 ML IV ONE (16:14)
[2024-04-28 07:42] LABS: Hematocrit (blood only) 41.2 % (37.0-47.0); Hemoglobin 13.6 g/dl (12.0-16.0); Mean Corpuscular Volume 87.8 fL (80.0-100.0); Mean Platelet Volume 10.4 fL (9.4-12.4); Platelet Count 209 K/uL (130-400); RDW Coefficient of Variation 13.5 % (11.5-14.5); RDW Standard Deviation 43.1 fL (36.4-46.3); Red Blood Count 4.69 M/uL (4.20-5.40); White Blood Count 6.51 K/ul (4.8-10.8)
[2024-04-28 07:56] LABS: BUN Creatinine Ratio 26.1 (10-20); Calcium 9.3 mg/dl (8.6-10.3); Creatinine Clr Calc Pharmacy 82.7 ml/min; Magnesium 2.1 mg/dl (1.7-2.4); Phosphorus 3.5 mg/dl (2.5-4.9); Potassium 4.3 mmol/L (3.5-5.1)
--- NOTE | 2024-04-28 14:22 | Discharge Summary ---
Date of Service April 28, 2024 Admission HPI Per Admitting Provider Patient is 58 year old female with PMH dyslipidemia, asthma, anxiety, depression presented to ER with c/o stroke like symptoms that occurred this afternoon. Tuesday morning woke up for work and getting ready had started with dizziness described as room spinning with nausea and states lowered herself to floor until symptoms eased. She reports went to PCP on Tuesday for the dizziness and was prescribed Meclizine. Reports the dizziness had improved but still present with certain movements. States at work today and stood up and had dizziness described as spinning and felt lightheaded and reports fell against table. Denies LOC. 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 It is reported patient couldn't make a fist with her right hand. She reports tingling of lips and face. No facial droop was reported by co- workers. Upon ER arrival was noted to have right arm and right leg drift. Since being in ER has had improvement of her speech. She states feels exhausted. She reports frontal ARNOLD since being in ER. In ER had neurology telestroke and TNK was discussed however patient chose to defer at this time since having improvement of her symptoms. Further history patient reports a couple of weeks ago had chest pain and reports some increased SOB past couple of weeks with some wheezing and dry cough. Patient states in September 2023 had episode of dizziness, nausea, and diaphoresis that resolved until this week. Denies fever/chills, diaphoresis, V/D/C, vision changes, neck pain, palpitations, rhinorrhea, abdominal pain, extremity edema, rashes, urinary symptoms, hearing loss, tinnitus, seizure like activity, loss control of bowel/bladder, Per chart review history carotid Doppler 11/10/2023: Less than 50% stenosis bilateral internal carotid arteries, antegrade flow bilateral vertebral arteries, bilateral subclavian artery signals normal consistent with no significant arterial occlusion Admission Exam Per Admitting Provider General Appearance: Obese, no apparent distress Head: normocephalic, Atraumatic Eyes: normal inspection, EOMI Neck: supple, Trachea midline Respiratory/Chest: Decreased breath sounds, CTA, No accessory muscle use Cardiovascular: S1, S2, No murmur Abdomen/GI:Soft, Non tender, Bowel sounds present Extremities/Musculoskeletal:normal inspection, no edema Neurologic/Psych:AAOX3, no focal neurological deficits Skin: normal color, warm Principal Diagnosis Dizziness, stroke-like symptoms Discharge Exam General Appearance: Obese, no apparent distress Head: normocephalic, Atraumatic Eyes: normal inspection, EOMI Neck: supple Respiratory/Chest: Decreased breath sounds, CTA, No accessory muscle use Cardiovascular: S1, S2, No murmur Abdomen/GI:Soft, Non tender, Bowel sounds present Extremities/Musculoskeletal:normal inspection, no edema Neurologic/Psych:AAOX3, speech fluent, no facial asymmetry, moves extremities Skin: warm, dry Discharge Data Allergies Allergy/AdvReac Type Severity Reaction Status Date / Time pollen extracts Allergy Intermediate ITCHY Verified 11/09/23 13:17 EYES, SNEEZING, CONGESTION Consultations 04/26/24 18:26 ED Decision to Admit Stat 04/26/24 21:48 Consult Neurology Routine Ordered Studies 04/26/24 17:10 CT angio head w con Stat FINDINGS: The left vertebral artery is extremely diminutive at the level of the skull base. Right vertebral artery is normal in caliber, both form the basilar artery. No basilar artery aneurysm. [place] is patent. No thrombus or hemodynamically significant stenosis. No aneurysmal dilatation or jesus aneurysm. No enhancing mass in the brain. IMPRESSION: No CTA evidence of an acute vascular abnormality. CT angio neck with con Stat FINDINGS: A left-sided aortic arch is present. Takeoff of the great vessels is unremarkable with no atherosclerotic disease. No significant atherosclerotic plaque involving the carotid bulb, internal or external carotid arteries. The internal carotid arteries entered the skull base normally with no thrombus or hemodynamically significant stenosis. Left vertebral artery is extremely diminutive throughout its course, not visualized in the mid cervical spine, and reconstitutes at the level of the C2 vertebral body forming the basilar artery with the right vertebral artery. The right vertebral artery is patent with a normal appearance. The right vertebral artery forms the basilar artery. A thyroid cyst is noted on the left. IMPRESSION: 1. 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 2. Patent carotid arteries with no atherosclerotic plaque or hemodynamically significant stenosis. CT head/brain wo con Stat FINDINGS: Appropriate parenchymal volume is noted. Weaver-white differentiation is preserved. No edema or midline shift. No intra-axial or extra-axial hemorrhage. Ventricles are normal in size and configuration. Brainstem and cerebellum have a normal appearance. Calvarium unremarkable. Paranasal sinuses and mastoid air cells are well-pneumatized. Globes are intact. No retrobulbar abnormality. IMPRESSION: No CT evidence of an acute intracranial abnormality. 04/26/24 19:34 MR brain wo/w con Routine FINDINGS: Brain: Subtle T2/flair signal hyperintensity scattered throughout the subcortical and deep white matter consistent with very mild ischemic microangiopathy. No hemorrhage. Ventricles: Unremarkable. No ventriculomegaly. Bones/joints: Unremarkable. No acute fracture. Sinuses: Polyp or mucus retention cyst right ethmoid sinus inflammatory maxillary sinus. No acute sinusitis. Mastoid air cells: Unremarkable as visualized. No mastoid effusion. Orbits: Unremarkable as visualized. IMPRESSION: No acute findings in the head/brain. Mild ischemic microangiopathy Hospital Course (1) Stroke-like symptoms: (2) Dizziness: Patient is 58 year old female with PMH dyslipidemia, asthma, anxiety, depression presented to ER with c/o stroke like symptoms that occurred this afternoon. 1615 today with onset dizziness with standing followed by reported garbled speech by co-workers and reported tingling sensation of lips. Intermittent dizziness x 3 days. In ER afebrile, BP: 139/84, P: 88, R: 16, 95% on room air Upon ER arrival was noted to have right arm and right leg drift. Since being in ER has had improvement of her speech and extremity symptoms. Reports frontal ARNOLD and feels exhausted. In ER had neurology telestroke and TNK was discussed however patient chose to defer at this time since having improvement of her symptoms. Glucose: 110, no significant electrolyte abnormality, negative troponin CT head: No CT evidence of an acute intracranial abnormality. CTA head: No CTA evidence of an acute vascular abnormality. CTA neck: Extremely diminutive and/or partially occluded left vertebral artery, age-indeterminate. Patent carotid arteries with no atherosclerotic plaque or hemodynamically significant stenosis. MRI Brain FINDINGS: Brain: Subtle T2/flair signal hyperintensity scattered throughout the subcortical and deep white matter consistent with very mild ischemic microangiopathy. No hemorrhage. Ventricles: Unremarkable. No ventriculomegaly. Bones/joints: Unremarkable. No acute fracture. Sinuses: Polyp or mucus retention cyst right ethmoid sinus inflammatory maxillary sinus. No acute sinusitis. Mastoid air cells: Unremarkable as visualized. No mastoid effusion. Orbits: Unremarkable as visualized. IMPRESSION: No acute findings in the head/brain. Mild ischemic microangiopathy DDx: TIA, CVA, vertigo In ER given aspirin 81mg Tele to monitor for arrhythmias Lipid panel - LDL 76 A1c 6.0% TSH 2.5 Echo with bubble study - LV normal size, moderate LVH, LV EF 60-65%, no interatrial shunt noted Aspiration precautions PT/OT consult Continue home atorvastatin Start aspirin Neurology consulted Dizziness: 58 yo F presenting with dizziness and transient neurologic symptoms without any cause found on testing. MRI is unremarkable, CTA reveals a diminutive LVA, likely anatomic variant. Suggest she remain on aspirin but suspect her symptoms are due to migraine. would trial a migraine cocktail. She can otherwise follow- up with us as an outpatient for further investigation if symptoms persist. -- Migraine cocktail - compazine, benadryl, toradol and magnesium -- Aspirin 81mg daily -- Can continue statin -- Ongoing therapy evals -- Neurology follow-up 04/28 Pt is feeling much better today. Says headache resolved after getting migraine cocktail yesterday. She is also free of dizziness today and would like to go home. (3) Dyslipidemia: Continue home atorvastatin (4) Anxiety and depression: Continue home venlafaxine, buspirone Total Time Total Time Spent Total Time Spent (In Minutes): 40 Discharge Plan Discharge Items Patient Disposition: Home - Self-Care Reason For Visit: STROKE LIKE SYMPTOMS Discharge Diagnosis: Dizziness, stroke-like symptoms Activity: Per Instructions section Non-emergency contact: Primary Care Provider and Neurologist Call non-emergency contact if: you have any medication questions and your sympto ms worsen Follow-up/Referrals: Carrington Hidalgo MD [Primary Care Provider] - Diet: Heart Healthy Addtl Attending Provider Instructions: Follow up with primary care doctor within 1-2 weeks. Continue taking aspirin and atorvastatin. You can also follow up with neurology if your symptoms recur/ worsen. Take meclizine as needed as prescribed. Pending Studies at Discharge: No Stand-Alone Forms: My [employer], Smoking Cessation Medications and DC Order Prescriptions: New aspirin 81 mg Tablet,Delayed Release (Dr/Ec) 81 mg PO DAILY Qty: 30 0RF Continued atorvastatin 80 mg tablet 80 mg PO HS venlafaxine 75 mg capsule,extended release 24hr 75 mg PO HS buspirone 7.5 mg tablet 7.5 mg PO BID meclizine 12.5 mg tablet 12.5 mg PO TID PRN (Reason: Dizziness) Rx Instructions: started 04/24/24 ascorbic acid (vitamin C) [Vitamin C] 1,000 mg Tablet 1 g PO DAILY Discharge Orders: Discharge Order (Routine); Ordered 04/28/24 Ordered By: Catalino Qiu/Other Patient Handouts: Prediabetes, 5 Steps for Eating Healthier Admission Data Admit Date/Time: 04/26/24 18:50 Attending Provider: Catalino Burns Admit Provider: Yasmani Puga Primary Care Provider: Carrington Hidalgo Other Providers: Yasmani Puga; Mj Frazier
--- OUTSIDE RECORDS SUMMARY | 2024-04-29 04:49 | External Medical Summary | Continuity of Care Document ---
Author Name Unknown Organization [facility] [address] [facility] [address] [place] [phone] Care Team Providers Care Jukebox Routeman Name Role Phone ErisJohanne Primary Care Physician [phone] Encounter [facility] [id number] Date(s): 11/23/23 - 11/23/23 [facility] [address] [facility] [address] [facility] [address] [place] [address] [phone] Encounter Diagnosis HLD (hyperlipidemia)(Discharge Diagnosis) - 11/23/23 Discharge Disposition: Home or Self Care Attending Physician: DO Marquez Allison B Allergies, Adverse Reactions, Alerts No Known Medication Allergies Assessment and Plan Extracted from: Title:Office Visit Note Author:DO Weldon Nicho las Date:11/23/23 1.HLD (hyperlipidemia) Chronic condition, at goal Goal: Maintain cholesterol levels Data:lipid panelreviewed Plan: Continue atorvastatin daily Medications atorvastatin 80 mg oral tablet Start: 07/06/23 3:11:00 PM EST, 1 tab, PO, Daily Start Date: 07/06/23 Status: Ordered BuSpar Start: 07/06/23 3:10:00 PM EST, 10 mg =, PO, bid Start Date: 07/06/23 Status: Ordered Effexor Start: 07/06/23 3:10:00 PM EST, 75 mg =, PO, Daily Start Date: 07/06/23 Status: Ordered Vitamin C Start: 07/06/23 3:11:00 PM EST Start Date: 07/06/23 Status: Ordered Vitamin D3 Start: 07/06/23 3:11:00 PM EST Start Date: 07/06/23 Status: Ordered Mental Status 11/23/23 Barriers to Learning one year None evide nt Mandatory Health Literacy Documentation Yes Health Literacy Communication Barriers N ever Primary Language Bangladeshi Problem List Condition Confirmation Course Effective Dates Status Health St atus Informant Atypical chest pain Confirmed Active HLD (hyperlipidemia) Confirmed Active Diagnosis Diagnosis Type Effective Dates [facility] HLD (hyperlipidemia) Discharge Diagnosis 11/23/23 Non-Specified Vital Signs Most recent to oldest [Reference Range]: 1 Temperature [36.5-37.9 DegC] 36.7 DegC (11/23/23 11:18 AM) Heart Rate 84 bpm (11/23/23 11:18 AM) Respiratory Rate 16 br/min (11/23/23 11:18 AM) Blood Pressure 126/78mmHg (11/23/23 11:18 AM) Cuff Pulse Pressure 48 mmHg (11/23/23 11:18 AM) Social History Social History Type Response Smoking Status Former Smoker, quit > 1 yr Sex Female FCM Outpt Note * DO Weldon Nicholas: PERFORM DO Marquez Allison B: MODIFY Event Display: FCM Outpt Note Authored Date: [id number] Chief Complaint forms completion for school History of Present Illness 58 yo female here for follow up. No acute complaints today. Denies ARNOLD, CP, SOB, N/V/D, LE edema. Labs from June reviewed including CBC, CMP, lipid panel, VitD, A1c, B12. All WNL. Physical Exam Vitals & Measurements T:36.7C HR:84(Monitored) RR:16 BP:126/78 SpO2:96% PHQ2 Data(Data Documented on:11/23/2023 11:17) Emotional health assessment NEGATIVE GENERAL: No acute distress. Well developed and well nourished. Vital signs reviewed as above. EYES:Anicteric sclerae. HENT: Moist mucous membranes. RESPIRATORY: Clear to auscultation bilaterally.No wheezing, rales, orrhonchi. CARDIOVASCULAR: Regularrate and rhythm.No murmurs. EXTREMITIES: No gross deformities. SKIN: Warm, dry. NEUROLOGIC: Alert and oriented. Normal speech. No gross focal neurological deficits. PSYCHIATRIC: Cooperative. Appropriate mood and affect. Assessment/Plan 1.HLD (hyperlipidemia) Chronic condition, at goal Goal: Maintain cholesterol levels Data:lipid panelreviewed Plan: Continue atorvastatin daily Attestation Patient's case reviewed in detail with Dr. Weldon_, agree with detail of history and physical as documented above. Plan reviewed in detail with providing resident physician. Form completed. Continue current medications. Continue diet and exercise. Follow up for routine physicals. Problem List/Past Medical History Ongoing Atypical chest pain HLD (hyperlipidemia) Medications ascorbic acid(Vitamin C) atorvastatin(atorvastatin 80 mg oral tablet), 80 mg= 1 tab, PO, Daily busPIRone(BuSpar), 10 mg, PO, bid cholecalciferol(Vitamin D3) venlafaxine(Effexor), 75 mg, PO, Daily Allergies No Known Medication Allergies Social History Smoking Status Former Smoker, quit > 1 yr Recommendations Health Maintenance Pending(in the next year) Due Adult Influenza Vaccine due11/20/23and every 1year Adult COVID-19 Vaccination due11/23/23Unknown Frequency Adult Social Determinants of Health Screening due11/23/23Unknown Frequency Adult Tdap/Td Vaccine due11/23/23Unknown Frequency Body Mass Index due11/23/23Unknown Frequency Cervical Cancer Screening due11/23/23Unknown Frequency Hepatitis C Screening due11/23/23One-time only Shingles Vaccine due11/23/23One-time only Satisfied(in the past 1 year) Satisfied Lipid Screening on07/07/23.Satisfied by Contributor_system, [employer]ane[employer] Electronic Signature on File Electronically Reviewed/Signed by: Yan Weldon DO Author Signature Dt/Tm:11/23/2023 05:46 PM Resident Department of Family Medicine Electronically Reviewed/Signed by: Kaycee Marquez DO Cosigner Signature Dt/Tm: 11/25/2023 08:14 AM Department of Family Medicine [place] Patient Care team information Care Team Personnel Name: MAHAD Schulte, Johanne Verdugo Position: Physician Asst Exmpt - Family Med Member Role: Primary Care Provider Address: Address: [address] [place] [address] [place] Care Team Related Persons Name: DONALD SEBASTIAN Address: [facility] [address] [facility] [phone]
--- OUTSIDE RECORDS SUMMARY | 2024-04-29 04:49 | External Medical Summary | Continuity of Care Document ---
Author Name Unknown Organization [address] [place] [phone] Care Team Providers Care Dance Studio Manager Name Role Phone Johanne Schulte Primary Care Physician [phone] [facility] [id number] Date(s): 12/09/23 - 12/09/23 [facility] [address] [place] [address] [phone] Discharge Disposition: Home or Self Care Attending Physician: MD Yu Christopher Allergies, Adverse Reactions, Alerts No Known Medication Allergies Medications atorvastatin 80 mg oral tablet Start: [...] PM EST Start Date: 07/06/23 Status: Ordered Problem List Condition Confirmation Course Effective Dates Status Health St at[facility] Informant Atypical chest pain Confirmed Active HLD (hyperlipidemia) Confirmed Active Social History Social History Type Response Smoking Status Former Smoker, quit > 1 yr Sex Female Patient Care team information Care Team Personnel Name: MAHAD Schulte Kimberly A Position: Physician Asst Exmpt - Family Med Member Role: Primary Care Provider Address: Address: [address] [place] [id number] [place] Care Team Related Persons Name: DONALD SEBASTIAN Address: home [address] [facility] [place] [phone]
--- OUTSIDE RECORDS SUMMARY | 2024-04-29 04:49 | External Medical Summary | Continuity of Care Document ---
Author Name Unknown Organization [facility] [address] [facility] [address] [place] [phone] Care Team Providers Care Rock Cutter Name Role Phone Johanne Schulte Primary Care Physician [phone] Encounter [facility] [id number] Date(s): 11/25/23 - 11/25/23 [facility] [address] [facility] [address] [place] [phone] Discharge Disposition: Home or Self Care Attending Physician: MAHAD Schulte Kimberly A Referring Physician: MAHAD Schulte Kimberly A Allergies, Adverse Reactions, Alerts No Known Medication [...] pain Confirmed Active HLD (hyperlipidemia) Confirmed Active Results Laboratory List Name Date PPD Reading Outpt 11/25/23 Most recent to oldest [Reference Range]: 1 PPD mm of Induration 0 mm (11/25/23 1:12 PM) PPD Interpretation Negative (11/25/23 1:12 PM) Social History Social History Type Response Smoking Status Former Smoker, quit > 1 yr Sex Female Patient Care team information Care Team Personnel Name: MAHAD Schulte, Johanne Verdugo Position: Physician Asst Exmpt - Family Med Member Role: Primary Care Provider Address: Address: [address] [facility] [place] [address] Care Team Related Persons Name: DONALD SEBASTIAN Address: [place] [address] [facility] [place] [phone]
--- OUTSIDE RECORDS SUMMARY | 2024-04-29 04:49 | External Medical Summary | Continuity of Care Document ---
Author Name Unknown Organization [address] [place] [phone] Care Team Providers Care Bristle Machine Operator Name Role Phone Johanne Schulte Primary Care Physician [phone] Encounter [facility] [id number] Date(s): 12/07/23 - 12/07/23 [facility] [address] [place] [phone] Discharge Disposition: Home or Self Care Attending [...] Member Role: Primary Care Provider Address: Address: [address] [place] [address] [place] Care Team Related Persons Name: DONALD SEBASTIAN Address: home [address] [facility] [place] [phone]
--- OUTSIDE RECORDS SUMMARY | 2024-04-29 04:49 | External Medical Summary | Continuity of Care Document ---
Author Name Unknown Organization [facility] [address] Address [address] [place], [place] [id number] Care Team Providers Care President Practicing Urologist Name Role Phone Johanne Schulte Primary Care Physician [phone] [id number] Date(s): 01/18/24 - 01/18/24 [facility] [address] [place] [address] [phone] Encounter Diagnosis Chest pain(Discharge Diagnosis) - 01/18/24 Syncope(Discharge Diagnosis) - 01/18/24 HLD (hyperlipidemia)(Discharge Diagnosis) - 01/18/24 Discharge Disposition: Home or Self Care Attending Physician: VENESSA Bourne Sarah A Referring Physician: DO Carreon Stephanie Marie Allergies, Adverse Reactions, Alerts No Known Medication Allergies Assessment and Plan Extracted from: Title:Cardiology Office Visit Note Author:VENESSA Wing rd, Sarah A Date:01/18/24 Impression: 1. Non cardiac chest pain 2. Vasovagal syncope 3. Stress test at [facility] 09/2023 negative for ischemia Ms. Ardon's syncopal episodes sound vasovagal in nature. At this point I do not think she needs further workup. I will request a copy of the event monitorshe wore for [facility] cardiology. I reviewed her [facility] workup in depth with her. She was reassured thatthere is no evidence that she had a heart attackor obstructive coronary disease. She negative stress test. Her troponins remain normal. She had no wall motion abnormalities that would make us think that she had had a heart attack in the past. [facility] but otherwise did not have ischemic changes and so was likelydue tolead placement. We discussed thatis also reassuring that she has not had any further chest discomfort since that time. She had a CTangio of her coronaries ordered at [facility] but at this point I think this can be deferredgiven her negative stress testand resolution of her symptoms. She asked if she could decrease her atorvastatin dosing. Her LDL is at goalat 69. I discussed with her that given her familyhistory of coronary disease including a sister who had a heart attack in her 40sit would be reasonable to be more aggressive with statin therapyand keep it high dose. However, if she wanted to decrease with a goalof keeping her LDL below 100 that would also be reasonablestrategyto pursue. I will messagethe senior business manager to read her CT angio at [facility] and see if they can comment on whether she has any coronary artery calcification burdenwhich can help us to further risk stratify. She was encouraged to get at least 30 minutes of cardiovascular activity per day. I will see her back3 months Medications atorvastatin 80 mg oral tablet Start: [...] Start Date: 07/06/23 Status: Ordered Mental Status 01/18/24 Barriers to Learning one year None evide nt Mandatory Health Literacy Documentation Yes Health Literacy Communication Barriers N ever Primary Language Sinhala Problem List Condition Confirmation Course Effective Dates Status Health St at[facility] Informant Atypical chest pain Confirmed Active HLD (hyperlipidemia) Confirmed Active Diagnosis Diagnosis Type Effective Dates Health Status Cl inical Service Informant Syncope Discharge Diagnosis 01/18/24 Non-Specified HLD (hyperlipidemia) Discharge Diagnosis 01/18/24 Non-Specified Chest pain Discharge Diagnosis 01/18/24 Non-Specified Vital Signs Most recent to oldest [Reference Range]: 1 Patient Weight 93 kg (01/18/24 2:49 PM) Heart Rate 84 bpm (01/18/24 2:49 PM) Respiratory Rate 18 br/min (8/28/24 2:49 PM) Blood Pressure 118/62mmHg (01/18/24 2:49 PM) BP Location # 1 Left Arm (01/18/24 2:49 PM) Social History Social History Type Response Smoking Status Former Smoker, quit > 1 yr Sex Female Sex Representation Female (finding) Cardiology Outpatient Note * VENESSA Bourne Sarah A: PERFORM Event Display: Cardiology Outpt Note Authored Date: [id number] Primary Care Provider MAHAD Schulte, Johanne Verdugo Referring Provider DO Carreon Stephanie Marie Chief Complaint SOB , chest pain ,dizziness or lightheadedness near syncope in September see in the ER currentlyDenies resent chest pain, pressure, Palpitations, heart racing, History of Present Illness Ms. Ardon presents to establish care for an event of syncope and chest pain. From June to September she was having chest pain that would start in her left chest and spread to herneck. It would last hours to days at a time and was not associated with exertion. In September she had ansyncopal episode where she was spreading mulch in her yard and started feeling sweaty and nauseas and then slid down her fence nearly losing consciousness but not going out all of the way. She was evaluated in the office she work in at [facility] and then was referred to the ED. In the ED she had an EKG with poor R wave progression but no other ischemic changes. Her troponin was normal. She had a stress echo which was negative for ischemic changes and her resting echo did not show any ischemic changes. She had no PE on CT. Since September she has not had further chest pain or fainting. She can carry laundry up the stairs without difficulty.She is in a [employer] group that practices once a week and feels well doing so. 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 Respiratory: Lungs are clear to auscultation, Respirations are non-labored. Cardiovascular: Normal rate, Regular rhythm, No murmur, No edema, no carotid bruits to auscultation bilaterally. Integumentary: Warm, Dry, [place] Neurologic: Alert, Oriented. Cognition and Speech: Speech clear and coherent. Psychiatric: Cooperative, Appropriate mood & affect. Assessment/Plan Impression: 1. Non cardiac chest pain 2. Vasovagal syncope 3. Stress test at [facility] 09/2023 negative for ischemia Ms. Ardon's syncopal episodes sound vasovagal in nature. At this point I do not think she needs further workup. I will request a copy of the event monitorshe wore for [facility] cardiology. I reviewed her [facility] workup in depth with her. She was reassured thatthere is no evidence that she had a heart attackor obstructive coronary disease. She negative stress test. Her troponins remain normal. She had no wall motion abnormalities that would make us think that she hadhad a heart attack in the past. [facility] butotherwise did not have ischemic changes and so was likelydue tolead placement. We discussed thatis also reassuring that she has not had any further chest discomfort since that time. She hada CTangio of her coronaries ordered at [facility] but at this point I think this can be deferredgiven her negative stress testand resolution of her symptoms. She asked if she could decrease her atorvastatin dosing. Her LDL is at goalat 69. I discussedwith her that given her familyhistory of coronary disease including a sister who had a heart attack in her 40sit would be reasonable to be more aggressive with statin therapyand keep it high dose. However, if she wanted to decrease with a goalof keeping her LDL below 100 that would also be reasonablestrategyto pursue. I will messagethe senior business manager to read her CT angio at [facility] and see if they can comment on whether she has any coronary artery calcification burdenwhich can help us to further risk stratify. She was encouraged to get at least 30 minutes of cardiovascular activity per day. I will see her back3 months Problem List/Past Medical History Ongoing Atypical chest pain HLD (hyperlipidemia) Medications ascorbic acid(Vitamin C) atorvastatin(atorvastatin 80 mg oral tablet), 80 mg= 1 tab, PO, Daily busPIRone(BuSpar), 10 mg, PO, bid cholecalciferol(Vitamin D3) venlafaxine(Effexor), 75 mg, PO, Daily Allergies No Known Medication Allergies Social History Smoking Status Former Smoker, quit > 1 yr Electronic Signature on File CC: Johanne Schulte PA-C [address] [id number] Electronically Reviewed/Signed by: VENESSA Lombardi Author Signature Dt/Tm:01/18/2024 04:08 PM [facility] [place] [facility] Patient Care team information Care Team Personnel Name: MAHAD Schulte, Johanne Verdugo Position: Physician Asst Exmpt - Family Med Member Role: Primary Care Provider Address: [address] [place] [address] [place] Care Team Related Persons Name: DONALD ARDON
--- NOTE | 2024-04-30 16:27 | Coding Query ---
CODING QUERY To promote full compliance with coding requirements relating to patient care, provider participation is requested in all cases of paleology teacher uncertainty. Please assist us with the question(s) below: Coding Question(s): The medical record reflects the following clinical evidence: Clinical Indicators: Presents with stroke-like symptoms. MRI negative for CVA. Risk Factor(s): HTN, hemiplegia resolved, aphasia resolved Treatment: CT/MRI head, ASA therapy, Neuro consult, neuro checks Physician's Response(s): _x__Possible Transient cerebral ischemic attack ___Disagree/Unable to determine Thank you Karlie SETH
== END 2024-04-28 15:55 | disposition home or self-care (01) | DRG 69 ==
LOC: ED 17:04 → 2N 18:50 → SUATTDRO 18:50 → 2N 20:33

== ENCOUNTER 2024-11-17 12:24 | Inpatient (IN) ==
[2024-11-17 13:01] LABS: Hematocrit (blood only) 40.2 % (37.0-47.0); Hemoglobin 13.7 g/dl (12.0-16.0); Immature Granulocytes # (auto) 0.03 K/uL (0.01-0.20); Immature Granulocytes % (auto) 0.3 %; Mean Corpuscular Hemoglobin 30.0 pg (25.0-34.0); Mean Corpuscular Volume 88.0 fL (80.0-100.0); Platelet Count 228 K/uL (130-400); RDW Standard Deviation 44.3 fL (36.4-46.3); Red Blood Count 4.57 M/uL (4.20-5.40); White Blood Count 8.67 K/ul (4.8-10.8)
[2024-11-17 13:19] LABS: Alanine Aminotransferase 17 U/L (7-52); Albumin Globulin Ratio 1.3 (0.9-2); Alkaline Phosphatase 91 U/L (34-104); Anion Gap 8 (3-11); Bilirubin,Total 1.2 mg/dl (0.2-1.0); Blood Urea Nitrogen 16 mg/dl (6-23); Calcium 9.5 mg/dl (8.6-10.3); Carbon Dioxide 28 mmol/L (21-32); Chloride 105 mmol/L (98-107); Creatinine Clr Calc Pharmacy 84.5 ml/min; Globulin 3.1 gm/dl (2.5-4.0); Glucose 102 mg/dl (70-99(Fasting)); Potassium 3.8 mmol/L (3.5-5.1); Sodium 141 mmol/L (136-145); Total Protein 7.2 gm/dl (6.0-8.3)
[2024-11-17 13:32] LABS: INR 1.0 (0.9-1.1); Partial Thromboplastin Time 26 Seconds (21-31); Prothrombin Time 10.6 Seconds (9.0-12.0)
--- NOTE | 2024-11-17 13:40 | XRay Report ---
XR chest 1V portable CLINICAL HISTORY: Chest pain, nonspecific COMPARISON STUDY: 10/11/2023 FINDINGS: Heart size and pulmonary vasculature are normal. There is interval stranding and patchy opa city at the left lung base. No other consolidation or pleural effusion. No pneumothorax. IMPRESSION: Pneumonia left lung base. ACT 112: Negative or not required by law. Electronically signed by: Angelo Cadena M.D. 11/17/2024 1:39 PM
[2024-11-17] MEDS: cefTRIAXone SODIUM 2,000 MG/50 ML BAG IV STA (13:51)
[2024-11-17] MEDS: AZITHROMYCIN 500 MG/255 ML BAG IV ONE (14:40)
--- NOTE | 2024-11-17 15:03 | History & Physical Report ---
Date of Service November 17, 2024 Assessment & Plan (1) Community acquired bacterial pneumonia: Plan: Acute hypoxic resp. failure Pt with rhinorrhea, cough, sputum production Found hypoxic at urgent care, currently on 3L of suppl. O2 CXR: Pneumonia left lung base. In ED started on ceftriaxone, azithromycin, will continue add guaifenesin, flutter valve, spirometer obtain sputum cultx if able biofire wean off O2 cont. to closely monitor Chronic conditions Dyslipidemia- cont. home statin anxiety, depression - cont. home buspar, venlafaxin hx of asthma, no wheezing on exam, no exacerbation at this time - cont. to closely monitor, albuterol prn DVT ppx heparin History of Present Illness Chief Complaint: shortness of breath Primary Care Provider: Carrington Hidalgo MD 59 yo F w/ hx of dyslipidemia, asthma, anxiety/depression, prediabetes, who now presents with shortness of breath and found to have pneumonia. Pt was last time hospitalized here in April 2024 for dizziness/ stroke-like symptoms. She follows w/ PCP Dr. Hidalgo, in [place]. She reports she had rhinorrhea , at first clear then turned yellow and then cough with yellow sputum production. Initially felt improved, after she took some over the counter cough medications and Nyquil. Then on Tuesday she started to feel short of breath. Today she went to [facility] urgent care, and as she was hypoxic she was sent to the ED. She had CXR there that was concerning for left lower lobe pna. Currently in the ED pt is on 3L of suppl. O2. She feels fairly comfortable now. Says she works at [employer]. so certainly could have sick exposures. Reports some left sided chest pain with deep inspiration otherwise denies any fever, chills, abd.pain, n/v. She had some diarrhea earlier , says it was from food, and not unusual for her. Allergies Allergy/AdvReac Type Severity Reaction Status Date / Time pollen extracts Allergy Intermediate ITCHY Verified 11/09/23 13:17 EYES, SNEEZING, CONGESTION Home Medications Medication Instructions Recorded Confirmed Type atorvastatin 80 mg tablet 80 mg PO HS 10/11/23 04/26/24 History buspirone 7.5 mg tablet 7.5 mg PO BID 10/11/23 04/26/24 History venlafaxine 75 mg capsule,extended 75 mg PO HS 10/11/23 04/26/24 History release 24 hr ascorbic acid (vitamin C) 1,000 mg 1 g PO DAILY 04/26/24 04/26/24 History tablet (Vitamin C) meclizine 12.5 mg tablet 12.5 mg PO TID PRN Dizziness 04/26/24 04/26/24 History aspirin 81 mg tablet,delayed 81 mg PO DAILY #30 tabs 04/28/24 Rx release albuterol 90 mcg-budesonide 80 2 inh inhalation DAILY PRN 08/10/24 08/10/24 History mcg/actuation HFA aerosol inhaler (Airsupra) loratadine 10 mg tablet 10 mg PO DAILY 08/10/24 08/10/24 History Past Med/Surg History Problem List (Updated 11/17/24 @ 15:30 by Catalino Burns MD) Community acquired bacterial pneumonia Vertigo Complicated migraine Dyslipidemia Dizziness Stroke-like symptoms Anxiety and depression Acute right-sided weakness (Acute) Expressive aphasia (Acute) History of tobacco use Asthma Pulmonary nodules Medical History Rotator cuff arthropathy of right shoulder Surgical History H/O hernia repair H/O: hysterectomy Total knee replacement status left knee Family History Mother Cancer gastric/stomach Other Heart disease Social History Smoking Status: Never smoker Hx Alcohol Use: No Hx Substance Use: No Preferred Language: Cypriot Communication Ability: Effective Distance Learning Coordinator Required: No Beliefs That Will Affect Care: None Current Living Situation: Spouse Feels Safe at Home: Yes Assistive Devices: Glasses Review of Systems Review of Systems: All systems reviewed & are unremarkable except as noted in HPI & below Physical Exam Physical Exam: General Appearance: Obese F in no apparent distress, on 3L of suppl. O2 Head: normocephalic, Atraumatic Eyes: normal inspection, EOMI Neck: supple Respiratory/Chest: Decreased breath sounds, crackles at left base, no wheezing, No accessory muscle use Cardiovascular: S1, S2, No murmur Abdomen/GI:Soft, Non tender, Bowel sounds present Extremities/Musculoskeletal:normal inspection, no edema Neurologic/Psych:AAOX3, speech fluent, no facial asymmetry, answers appropriately, moves extremities Skin: warm, dry Results & Data Results & Data Vital Signs (Past 12 Hours) Vital Signs Temp Pulse Pulse Resp BP BP Pulse Ox 11/17/24 14:21 85 11/17/24 13:18 82 17 95 11/17/24 13:18 85 16 145/102 H 95 11/17/24 13:18 96 11/17/24 12:31 37.1 C 90 90 H 145/90 H 88 L O2 Del Method O2 Flow Rate 11/17/24 14:21 11/17/24 13:18 Nasal Cannula 3 11/17/24 13:18 Nasal Cannula 3 11/17/24 13:18 Room Air 11/17/24 12:31 Room Air Laboratory Results 11/17/24 Range/Units 12:45 WBC 8.67 (4.8-10.8) K/ul RBC 4.57 (4.20-5.40) M/uL Hgb 13.7 (12.0-16.0) g/dl Hct 40.2 (37.0-47.0) % MCV 88.0 (80.0-100.0) fL MCH 30.0 (25.0-34.0) pg MCHC 34.1 (32.0-36.0) g/dL RDW Std Deviation 44.3 (36.4-46.3) fL RDW Coeff of Ariel 13.8 (11.5-14.5) % Plt Count 228 (130-400) K/uL MPV 10.7 (9.4-12.4) fL Immature Gran % (Auto) 0.3 % Neut % (Auto) 69.6 % Lymph % (Auto) 17.9 % [place] % (Auto) 8.2 % Eos % (Auto) 3.2 % Baso % (Auto) 0.8 % Neut # (Auto) 6.03 (1.40-6.50) K/uL Lymph # (Auto) 1.55 (1.20-3.40) K/uL [place] # (Auto) 0.71 H (0.11-0.59) K/uL Eos # (Auto) 0.28 (0.00-0.50) K/uL Baso # (Auto) 0.07 (0.00-0.20) K/uL Immature Gran # (Auto) 0.03 (0.01-0.20) K/uL PT 10.6 (9.0-12.0) Seconds INR 1.0 (0.9-1.1) APTT 26 (21-31) Seconds PTT Ratio 1.0 Sodium 141 (136-145) mmol/L Potassium 3.8 (3.5-5.1) mmol/L Chloride 105 (98-107) mmol/L Carbon Dioxide 28 (21-32) mmol/L Anion Gap 8 (3-11) BUN 16 (6-23) mg/dl Creatinine 0.85 (0.6-1.2) mg/dl Est Cr Clr Drug Dosing 84.5 ml/min eGFR 78.87 BUN/Creatinine Ratio 18.8 (10-20) Glucose 102 H (70-99(Fasting)) mg/dl Calcium 9.5 (8.6-10.3) mg/dl Total Bilirubin 1.2 H (0.2-1.0) mg/dl AST 17 (13-39) U/L ALT 17 (7-52) U/L Alkaline Phosphatase 91 (34-104) U/L Troponin I High Sens < 2.3 (0-14) pg/ml Total Protein 7.2 (6.0-8.3) gm/dl Albumin 4.1 (3.4-5.0) gm/dl Globulin 3.1 (2.5-4.0) gm/dl Albumin/Globulin Ratio 1.3 (0.9-2) Diagnostic Findings CXR FINDINGS: Heart size and pulmonary vasculature are normal. There is interval stranding and patchy opacity at the left lung base. No other consolidation or pleural effusion. No pneumothorax. IMPRESSION: Pneumonia left lung base. Code Status & VTE Plan VTE Prophylaxis Plan VTE Prophylaxis will be ordered: Yes
[2024-11-17] MEDS ORDERED: NON-FORMULARY MEDICATION (Albuterol-Budesonide [Airsupra] 90-80 mcg/actuation HFA aerosol INH PRN (15:05)
--- NOTE | 2024-11-17 15:24 | Emergency Department Note ---
Impression & Plan Community acquired pneumonia ED Provider Note NAME: MAL SEBASTIAN AGE: 59 SEX: F : 1965 ARRIVES VIA: Walk-In INFORMANT: Patient, ED PROVIDER(S): Marilyn Ornelas MD CHIEF COMPLAINT: Shortness of breath HPI: This is a 59-year-old female with shortness of breath. Patient states that last week she began having cough, congestion. She notes she is trying to feel better and then on Tuesday she began feeling worse again. She now had new productive sputum, green in etiology. She reported continued shortness of breath. She went to urgent care today who sent her here for a left lobe pneumonia and oxygen levels are low. She reports no chest pain with this. No nausea, vomiting or diarrhea. She was a former smoker, quit multiple years ago. ROS: See above HPI for pertinent positives & negatives. A total of 10 systems reviewed and were otherwise negative. PAST MEDICAL HISTORY: See Below PAST SURGICAL HISTORY: See Below FAMILY HISTORY: See Below SOCIAL HISTORY: See Below HOME MEDICATIONS: See Below ALLERGIES: See Below VITALS: See Below PHYSICAL EXAMINATION: General: resting comfortably in no acute distress Head: Normocephalic and atraumatic Eyes: Normal inspection, extraocular muscles intact Ear, nose, throat: Normal external exam Neck: Normal range of motion Respiratory: Diminished at left lung, otherwise clear to auscultation Cardiovascular: Regular rate/rhythm, no murmur GI: soft, nontender, no guarding or rebound Extremities: nontender, moves all extremities Neuro: The patient awake and alert, appropriately conversive, no focal deficits, symmetric faces Skin: Warm, dry, and intact MEDICAL DECISION MAKING: This is a 59-year-old female presents for shortness of breath. Patient had x- ray at an outpatient office which showed pneumonia. -X-ray Independently interpreted by me as left lower lung opacity concerning for pneumonia without pneumothorax or pleural effusion. -Patient hypoxic to 88% here. -Bloodwork is reviewed showing no significant leukocytosis, anemia, electrolyte or creatinine abnormality. Negative troponin. -ECG independently interpreted by me with normal sinus rhythm, rate of 82, normal MN, normal QRS, normal QTc, no ST segment elevations consistent with STEMI criteria -Will start azithromycin and ceftriaxone for pneumonia. -Care discussed with Dr. Burns, [facility] hospitalist for admission due to patient's hypoxia and pneumonia symptoms. Differential diagnosis: Pneumonia, CHF, upper respiratory infection Diagnostics interpreted by me: ECG: ECG independently interpreted by me with normal sinus rhythm, rate of 82, normal axis, normal MN, normal QRS, normal QTc, no ST segment elevations consistent with STEMI criteria Cardiac Monitoring: An order was placed for continuous cardiac monitoring. The monitor shows a rate of 79 with sinus rhythm. Past Med/Surg History Problem List (Updated 11/17/24 @ 20:23 by Marilyn Ornelas MD) Community acquired pneumonia (Acute) Community acquired bacterial pneumonia Vertigo Complicated migraine Dyslipidemia Dizziness Stroke-like symptoms Anxiety and depression Acute right-sided weakness (Acute) Expressive aphasia (Acute) History of tobacco use Asthma Pulmonary nodules Medical History Rotator cuff arthropathy of right shoulder Surgical History H/O hernia repair H/O: hysterectomy Total knee replacement status left knee Family History Mother Cancer gastric/stomach Other Heart disease Social History Smoking Status: Former smoker Hx Alcohol Use: No Hx Substance Use: No Preferred Language: Macedonian Communication Ability: Effective Manager Revenue Required: No Beliefs That Will Affect Care: None Current Living Situation: Spouse Feels Safe at Home: Yes Assistive Devices: Glasses Allergies Allergies Allergy/AdvReac Type Severity Reaction Status Date / Time animal dander Allergy Severe Itching Unverified 11/17/24 18:19 pollen extracts Allergy Intermediate ITCHY Verified 11/17/24 18:19 EYES, SNEEZING, CONGESTION Home Meds Home Medications Medication Instructions Recorded Confirmed atorvastatin 80 mg tablet 80 mg PO HS 10/11/23 04/26/24 buspirone 7.5 mg tablet 7.5 mg PO BID 10/11/23 04/26/24 venlafaxine 75 mg capsule,extended 75 mg PO HS 10/11/23 04/26/24 release 24 hr ascorbic acid (vitamin C) 1,000 mg 1 g PO DAILY 04/26/24 04/26/24 tablet (Vitamin C) meclizine 12.5 mg tablet 12.5 mg PO TID PRN Dizziness 04/26/24 04/26/24 albuterol 90 mcg-budesonide 80 2 inh inhalation DAILY PRN 08/10/24 08/10/24 mcg/actuation HFA aerosol inhaler (Airsupra) loratadine 10 mg tablet 10 mg PO DAILY 08/10/24 08/10/24 Previous Rx's Medication Instructions Recorded aspirin 81 mg tablet,delayed 81 mg PO DAILY #30 tabs 04/28/24 release Results & Data (ED) Vital Signs Vital Signs - 24 hr 11/17/24 12:31 11/17/24 12:40 11/17/24 13:18 Temperature 37.1 C Temperature Source Skin Pulse Rate 90 Pulse Rate [Apical] Respiratory Rate 90 H Respiratory Effort / Characteristics Spontaneous Non-Labored Spontaneous Respiratory Depth Normal Normal Respiratory Pattern Regular Regular Blood Pressure 145/90 H Blood Pressure [Left Arm] Blood Pressure Mean 108 Blood Pressure Mean [Left Arm] Pulse Oximetry 88 L 96 Oxygen Delivery Method Room Air Room Air Oxygen Flow Rate Sepsis Recent Fever Within 48 Hours No Sepsis New/Unexplained Change in Mental Status N/A Sepsis Action Taken by Nursing No Action Required Oxygen Flow Rate - Titration 3 11/17/24 13:18 11/17/24 13:18 11/17/24 14:21 Temperature Temperature Source Pulse Rate 82 85 Pulse Rate [Apical] 85 Respiratory Rate 16 17 Respiratory Effort / Characteristics Respiratory Depth Respiratory Pattern Blood Pressure Blood Pressure [Left Arm] 145/102 H Blood Pressure Mean Blood Pressure Mean [Left Arm] 116 Pulse Oximetry 95 95 Oxygen Delivery Method Nasal Cannula Nasal Cannula Oxygen Flow Rate 3 3 Sepsis Recent Fever Within 48 Hours Sepsis New/Unexplained Change in Mental Status Sepsis Action Taken by Nursing Oxygen Flow Rate - Titration Laboratory Data 11/17/24 12:45 11/17/24 12:45 Lab Results 11/17/24 Range/Units 12:45 WBC 8.67 (4.8-10.8) K/ul RBC 4.57 (4.20-5.40) M/uL Hgb 13.7 (12.0-16.0) g/dl Hct 40.2 (37.0-47.0) % MCV 88.0 (80.0-100.0) fL MCH 30.0 (25.0-34.0) pg MCHC 34.1 (32.0-36.0) g/dL RDW Std Deviation 44.3 (36.4-46.3) fL RDW Coeff of Ariel 13.8 (11.5-14.5) % Plt Count 228 (130-400) K/uL MPV 10.7 (9.4-12.4) fL Immature Gran % (Auto) 0.3 % Neut % (Auto) 69.6 % Lymph % (Auto) 17.9 % [place] % (Auto) 8.2 % Eos % (Auto) 3.2 % Baso % (Auto) 0.8 % Neut # (Auto) 6.03 (1.40-6.50) K/uL Lymph # (Auto) 1.55 (1.20-3.40) K/uL [place] # (Auto) 0.71 H (0.11-0.59) K/uL Eos # (Auto) 0.28 (0.00-0.50) K/uL Baso # (Auto) 0.07 (0.00-0.20) K/uL Immature Gran # (Auto) 0.03 (0.01-0.20) K/uL PT 10.6 (9.0-12.0) Seconds INR 1.0 (0.9-1.1) APTT 26 (21-31) Seconds PTT Ratio 1.0 Sodium 141 (136-145) mmol/L Potassium 3.8 (3.5-5.1) mmol/L Chloride 105 (98-107) mmol/L Carbon Dioxide 28 (21-32) mmol/L Anion Gap 8 (3-11) BUN 16 (6-23) mg/dl Creatinine 0.85 (0.6-1.2) mg/dl Est Cr Clr Drug Dosing 84.5 ml/min eGFR 78.87 BUN/Creatinine Ratio 18.8 (10-20) Glucose 102 H (70-99(Fasting)) mg/dl Calcium 9.5 (8.6-10.3) mg/dl Total Bilirubin 1.2 H (0.2-1.0) mg/dl AST 17 (13-39) U/L ALT 17 (7-52) U/L Alkaline Phosphatase 91 (34-104) U/L Troponin I High Sens < 2.3 (0-14) pg/ml Total Protein 7.2 (6.0-8.3) gm/dl Albumin 4.1 (3.4-5.0) gm/dl Globulin 3.1 (2.5-4.0) gm/dl Albumin/Globulin Ratio 1.3 (0.9-2) Administered Medications Acetaminophen (Acetaminophen 325 Mg Tab) 650 mg PO Q4H PRN PRN Reason: Pain or Fever Stop: 12/17/24 14:51 Last Admin: 11/17/24 17:25 Dose: 650 mg Documented By: MTPalmer Guaifenesin (Guaifenesin 600 Mg Tabcr) 600 mg PO Q12 ALEJANDRO Stop: 12/17/24 15:04 Last Admin: 11/17/24 15:53 Dose: 600 mg Documented By: MMF Discontinued Medications Ceftriaxone Sodium (Rocephin) 2,000 mg in 50 mls @ 100 mls/hr IV NOW STA Stop: 11/17/24 14:12 Last Infusion: 11/17/24 14:44 Dose: Infused Documented By: Admin: 11/17/24 13:51 Dose: 100 mls/hr Documented By: BART Azithromycin (Zithromax) 500 mg in 255 mls @ 127.5 mls/hr IV NOW ONE Stop: 11/17/24 15:42 Last Infusion: 11/17/24 17:51 Dose: Infused Documented By: MTPalmer Admin: 11/17/24 14:40 Dose: 127.5 mls/hr Documented By: MMN Imaging Data Radiologist's Impression: Chest X-Ray 11/17/24 12:39 XR chest 1V portable CLINICAL HISTORY: Chest pain, nonspecific COMPARISON STUDY: 10/11/2023 FINDINGS: Heart size and pulmonary vasculature are normal. There is interval stranding and patchy opacity at the left lung base. No other consolidation or pleural effusion. No pneumothorax. IMPRESSION: Pneumonia left lung base. ACT 112: Negative or not required by law. Electronically signed by: Angelo Cadena M.D. 11/17/2024 1:39 PM Discharge Plan Visit Data Chief Complaint: Shortness of Breath/Dyspnea Stated Complaint: SOB, PNEUMONIA ED Provider: Marilyn Ornelas Discharge Problem: Community acquired pneumonia Patient Disposition: Admitted As Inpatient Condition: Fair Discharge Instructions Interventions: ED Discharge Assessment Last Done: 11/17/24 16:26
[2024-11-17] MEDS: guaiFENesin 600 MG TABCR PO SCH (15:53)
[2024-11-17] MEDS: ACETAMINOPHEN 325 MG TAB PO PRN (17:25)
--- NOTE | 2024-11-17 18:47 | Electrocardiogram Report ---
Test Reason : Blood Pressure : */* mmHG Vent. Rate : 82 BPM Atrial Rate : 82 BPM P-R Int : 154 ms QRS Dur : 80 ms QT Int : 370 ms P-R-T Axes : 18 -26 19 degrees QTcB Int : 432 ms Normal sinus rhythm Normal ECG When compared with ECG of 26-Apr-2024 17:22, No significant change was found Confirmed by Ramesh Arriaza ([id number]) on 11/17/2024 6:46:45 PM Referred By: Confirmed By: Ramesh Arriaza
[2024-11-17 18:56] LABS: Influenza A virus by PCR Negative (Neg); Influenza B virus by PCR Negative (Neg); SARS CoV2 RNA(COVID-19) Ceph NEGATIVE (Negative)
[2024-11-17] MEDS: VENLAFAXINE HCL XR 75 MG CAPXR PO SCH (21:05)
[2024-11-17] MEDS: ATORVASTATIN 40 MG TAB PO SCH (21:05)
[2024-11-17] MEDS: HEPARIN SOD 5,000 UNIT/0.5 ML VIAL SQ SCH (21:06)
--- NOTE | 2024-11-18 03:34 | Communication Note ---
Date of Service: November 18, 2024
[2024-11-18] MEDS: ALBUTEROL HFA 8 GM INHALER INH PRN (03:45)
[2024-11-18] MEDS: NITROGLYCERIN SL 0.4 MG/TAB TAB SL STA (03:57)
[2024-11-18 04:22] LABS: Hematocrit (blood only) 37.8 % (37.0-47.0); Hemoglobin 12.9 g/dl (12.0-16.0); Mean Corpuscular Hemoglobin 29.7 pg (25.0-34.0); Mean Corpuscular Volume 87.1 fL (80.0-100.0); Platelet Count 226 K/uL (130-400); RDW Standard Deviation 43.8 fL (36.4-46.3); Red Blood Count 4.34 M/uL (4.20-5.40); White Blood Count 9.44 K/ul (4.8-10.8)
[2024-11-18 04:37] LABS: Anion Gap 7.0 (3-11); Blood Urea Nitrogen 17.0 mg/dl (6-23); Calcium 9.2 mg/dl (8.6-10.3); Carbon Dioxide 26.0 mmol/L (21-32); Chloride 106.0 mmol/L (98-107); Creatinine Clr Calc Pharmacy 92.2 ml/min; Glucose 111.0 mg/dl (70-99(Fasting)); Magnesium 2.0 mg/dl (1.7-2.4); Potassium 4.1 mmol/L (3.5-5.1); Sodium 139.0 mmol/L (136-145)
[2024-11-18 04:48] LABS: Partial Thromboplastin Time 28 Seconds (21-31)
[2024-11-18] MEDS: MAGNESIUM SULFATE / D5W 1 GM/100 ML BAG IV ONE (08:42)
[2024-11-18] MEDS: ASPIRIN 81 MG ECTAB PO SCH (08:43)
[2024-11-18] MEDS: AZITHROMYCIN 250 MG TAB PO SCH (08:44)
[2024-11-18] MEDS: LORATADINE 10 MG TAB PO SCH (08:44)
[2024-11-18] MEDS: ALBUT/IPRATROP 3MG/0.5MG NEB 3 ML VIAL NEB SCH (10:05)
[2024-11-18] MEDS: OPTIRAY 320 125ml IV ONE (11:41)
--- NOTE | 2024-11-18 12:10 | CT Scan Report ---
CT angio chest PE protocol CT DOSE: 796.02 mGy.cm HISTORY: 59 years-old Female with PE. Acute short of breath TECHNIQUE: Multiple CTA images of the chest were obtained after the intravenous administration of 118 ml Optiray. Coronal and sagittal MIPS were obtained from the axial data set and were submitted for review. All measurements were obtained according to NASCET criteria. A dose lowering technique was u tilized adhering to the principles of ALARA. COMPARISON: Chest radiograph same day, CTA chest 10/11/2023 FINDINGS: CTA: Mild cardiomegaly. No pericardial effusion. No thoracic aortic aneurysm or dissection. No central pul monary emboli are seen. Segmental and subsegmental branches are not well visualized, however there ar e numerous bilateral segmental and subsegmental pulmonary emboli present with a multilobar distributi on bilaterally. Mild straightening of the intraventricular septum. CT CHEST: Small hypodense thyroid nodules. No lymphadenopathy. Small pleural effusions. No pneumothorax. Mild i ntralobular septal thickening. Left greater than right patchy bibasilar consolidation with air bronch ograms. Central airways are patent. Distal esophageal wall thickening with small hiatal hernia. Unrem arkable soft tissues. No acute fracture. IMPRESSION: 1. Bilateral segmental and subsegmental pulmonary emboli with questioned right heart strain. 2. Small pleural effusions with left greater than right bibasilar consolidation suggestive of atelect asis, developing pneumonia and/or pulmonary infarct(s). 3. Small hiatal hernia. ACT 112: Negative or not required by law. The above report was generated using voice recognition software. It may contain grammatical, syntax o r spelling errors. Electronically signed by: Oneil Nicholson M.D. 11/18/2024 12:08 PM
[2024-11-18 13:49] LABS: INR 0.9 (0.9-1.1); Prothrombin Time 10.3 Seconds (9.0-12.0)
[2024-11-18 14:05] LABS: Fibrinogen 601 mg/dl (184-400)
--- NOTE | 2024-11-18 14:16 | Hospitalist Progress Note ---
Date of Service November 18, 2024 Assessment & Plan (1) Community acquired bacterial pneumonia: Plan: Ms. Ardon is a 59 yo woman with history of HLD, asthma, depression, and anxiety admitted for acute hypoxic respiratory failure. Patient was thought to have pneumonia. Patient with worsening pleurtic pain out of proportion to findings on imaging therefore CTA ordered with the following findings "Small hypodense thyroid nodules..... Distal esophageal wall thickening with small hiatal hernia. IMPRESSION: 1. Bilateral segmental and subsegmental pulmonary emboli with questioned right heart strain. 2. Small pleural effusions with left greater than right bibasilar consolidation suggestive of atelectasis, developing pneumonia and/or pulmonary infarct(s). 3. Small hiatal hernia." #Acute hypoxic resp failure #Bilateral segmental/subsegmental Pulmonary Emboli (Submassive, Unprovoked) sPESI 1 given hypoxia AMANDA 0 low risk. Pt presents with symptomatic but hemodynamically stable PE w/ imaging findings of ?right ventricular strain. Unclear trigger, as pt is without past hx suggestive of hypercoagulable state or recent travel, recent tobacco use, current hormone use, etc. -Starting heparin drip -Continue to monitor on tele -Troponin negative x 3 -BNP ordered -ECHO ordered to assess for right heart strain -BLE Dopplers ordered -Plan to transition to DOAC as symptoms improve -Wean o2 as able -Pulm toilet with IS and flutter valve #Pleurtic pain #developing pulm infarcts symptomatic management wbc wnl discontinue abx #Dyslipidemia coninue home statin #anxiety, depression continue home buspar, venlafaxin # asthma, mild, wellcontrolled no wheezing on exam, no exacerbation at this time continue to closely monitor, albuterol prn DVT ppx heparin ggt Admission and Anticipated Discharge Date Admission Date: November 17, 2024 Subjective Patient with ongoing pleuritic chest pain not quite consistent with a pneumonia, no reproducible on exam patient states this pain set on suddenly she also denies any history of asthmatic flares no recent travel, no recent episodes of inactivity, no recent surgeries, tobacco use about 9 years ago, no hormonal replacements, no family history Physical Exam Constitutional: WD/WN, vitals as above Respiratory: normal respiratory effort, lungs clear to auscultation clear however, pain noted with deep inhalation Gastrointestinal (Abdomen): normal bowel sounds, soft, nontender, no hepatosplenomegaly Results & Data Results & Data Vital Signs (Past 12 Hours) Vital Signs Temp Pulse Pulse Resp BP Pulse Ox O2 Del Method 11/18/24 11:19 36.6 C 91 H 18 113/72 93 Nasal Cannula 11/18/24 10:08 87 16 94 Nasal Cannula 11/18/24 08:00 36.9 C 81 16 103/69 93 Nasal Cannula 11/18/24 05:32 77 11/18/24 04:21 78 20 99/59 L 94 Nasal Cannula 11/18/24 03:46 76 20 94 Nasal Cannula 11/18/24 03:30 Nasal Cannula 11/18/24 03:20 36.7 C 84 22 122/78 92 Nasal Cannula 11/18/24 02:35 37.2 C 86 16 115/73 91 Nasal Cannula 11/18/24 02:10 80 O2 Flow Rate 11/18/24 11:19 3.5 11/18/24 10:08 6 11/18/24 08:00 4 11/18/24 05:32 11/18/24 04:21 4 11/18/24 03:46 3 11/18/24 03:30 4 11/18/24 03:20 3 11/18/24 02:35 3 11/18/24 02:10 Laboratory Results Short CBC 11/18/24 Range/Units 03:52 WBC 9.44 (4.8-10.8) K/ul Hgb 12.9 (12.0-16.0) g/dl Hct 37.8 (37.0-47.0) % Plt Count 226 (130-400) K/uL BMP 11/18/24 03:52 Sodium 139 Potassium 4.1 Chloride 106 Carbon Dioxide 26 BUN 17 Creatinine 0.75 Glucose 111 H Calcium 9.2 Diagnostic Findings Chest CTA 11/18/24 11:14 CT angio chest PE protocol CT DOSE: 796.02 mGy.cm HISTORY: 59 years-old Female with PE. Acute short of breath TECHNIQUE: Multiple CTA images of the chest were obtained after the intravenous administration of 118 ml Optiray. Coronal and sagittal MIPS were obtained from the axial data set and were submitted for review. All measurements were obtained according to NASCET criteria. A dose lowering technique was utilized adhering to the principles of ALARA. COMPARISON: Chest radiograph same day, CTA chest 10/11/2023 FINDINGS: CTA: Mild cardiomegaly. No pericardial effusion. No thoracic aortic aneurysm or dissection. No central pulmonary emboli are seen. Segmental and subsegmental branches are not well visualized, however there are numerous bilateral segmental and subsegmental pulmonary emboli present with a multilobar distribution bilaterally. Mild straightening of the intraventricular septum. CT CHEST: Small hypodense thyroid nodules. No lymphadenopathy. Small pleural effusions. No pneumothorax. Mild intralobular septal thickening. Left greater than right patchy bibasilar consolidation with air bronchograms. Central airways are patent. Distal esophageal wall thickening with small hiatal hernia. Unremarkable soft tissues. No acute fracture. IMPRESSION: 1. Bilateral segmental and subsegmental pulmonary emboli with questioned right heart strain. 2. Small pleural effusions with left greater than right bibasilar consolidation suggestive of atelectasis, developing pneumonia and/or pulmonary infarct(s). 3. Small hiatal hernia. ACT 112: Negative or not required by law. The above report was generated using voice recognition software. It may contain grammatical, syntax or spelling errors. Electronically signed by: Oneil Nicholson M.D. 11/18/2024 12:08 PM Medications Administered Home Medications Medication Instructions Recorded Confirmed Last Taken atorvastatin 80 mg tablet 80 mg PO HS 10/11/23 11/18/24 11/17/24 buspirone 7.5 mg tablet 7.5 mg PO TID 10/11/23 11/18/24 11/17/24 venlafaxine 75 mg capsule,extended 75 mg PO HS 10/11/23 11/18/24 11/17/24 release 24 hr aspirin 81 mg tablet,delayed 81 mg PO DAILY #30 tabs 04/28/24 11/18/24 11/17/24 release Active Medications Generic Name Dose Route Start Last Admin Trade Name Freq PRN Reason Stop Dose Admin Acetaminophen 650 mg 11/17/24 14:52 11/18/24 09:03 Acetaminophen 325 Mg Tab PO 12/17/24 14:51 650 mg Q4H PRN Administration Pain or Fever Albuterol 2 puffs 11/17/24 17:06 11/18/24 03:45 Albuterol Hfa 8 Gm Inhaler INH 12/17/24 17:05 2 puffs Q4H PRN Administration SHORTNESS OF BREATH/WHEEZING Aspirin 81 mg 11/18/24 09:00 11/18/24 08:43 Aspirin 81 Mg Ectab PO 12/18/24 08:59 81 mg DAILY ALEJANDRO Administration Atorvastatin Calcium 80 mg 11/17/24 21:00 11/17/24 21:05 Atorvastatin 40 Mg Tab PO 12/17/24 20:59 80 mg HS ALEJANDRO Administration Azithromycin 500 mg 11/18/24 09:00 11/18/24 08:44 Azithromycin 250 Mg Tab PO 11/23/24 08:59 500 mg QAM ALEJANDRO Administration Buspirone HCl 7.5 mg 11/17/24 21:00 11/18/24 08:43 Buspirone 7.5 Mg Tab PO 12/17/24 20:59 7.5 mg BID ALEJANDRO Administration Guaifenesin 600 mg 11/17/24 15:05 11/18/24 08:45 Guaifenesin 600 Mg Tabcr PO 12/17/24 15:04 600 mg Q12 ALEJANDRO Administration Loratadine 10 mg 11/18/24 09:00 11/18/24 08:44 Loratadine 10 Mg Tab PO 12/18/24 08:59 10 mg DAILY ALEJANDRO Administration Oxycodone HCl 5 mg 11/18/24 03:32 11/18/24 09:21 Oxycodone Hcl Ir 5 Mg Tab (Immediate Release) PO 12/02/24 03:31 5 mg Q4H PRN Administration Pain Venlafaxine HCl 75 mg 11/17/24 21:00 11/17/24 21:05 Venlafaxine Hcl Xr 75 Mg Capxr PO 12/17/24 20:59 75 mg HS ALEJANDRO Administration
--- NOTE | 2024-11-18 15:00 | Ultrasound Report ---
Examination: Doppler venous ultrasound of the lower extremity Comparison: None Technique: Grayscale evaluation with compression, spectral flow, and color Doppler assessment of the deep venous system of the leg, from the groin to the knee, as well as the lower leg Findings: The external iliac, common femoral, femoral, popliteal, and posterior tibial veins demonstrate normal compressibility and blood flow. Impression: No evidence for DVT of the bilateral lower extremity Electronically signed by Ramesh Fenton 11-18-2024 2:59 PM
[2024-11-18] MEDS: HEPARIN SOD (PORCINE) 1000 UNIT/ML IV ONE (15:24)
[2024-11-18] MEDS: HEPARIN 25000 UNIT/500 ML D5W 25,000 UNITS/500 ML BAG IV SCH (15:24)
[2024-11-18] MEDS: Heparin IV Adult Wt-Based Standard w/ INITIAL Bolus Protocol IV STA (15:24)
[2024-11-18] MEDS: cefTRIAXone SODIUM 2,000 MG/50 ML BAG IV SCH (16:01)
[2024-11-18] MEDS ORDERED: BUDESONIDE 0.25 MG/2 ML VIAL (PULMICORT) NEB SCH (19:00)
[2024-11-18 22:12] LABS: ANTI-Xa, UFH(UnfractionatedHep 0.64 IU/ml (0.3-0.7)
[2024-11-19 07:04] LABS: Hematocrit (blood only) 36.8 % (37.0-47.0); Hemoglobin 12.1 g/dl (12.0-16.0); Mean Corpuscular Hemoglobin 29.4 pg (25.0-34.0); Mean Corpuscular Volume 89.3 fL (80.0-100.0); Platelet Count 218 K/uL (130-400); RDW Standard Deviation 45.1 fL (36.4-46.3); Red Blood Count 4.12 M/uL (4.20-5.40); White Blood Count 7.89 K/ul (4.8-10.8)
[2024-11-19 07:25] LABS: Anion Gap 5.0 (3-11); Blood Urea Nitrogen 16.0 mg/dl (6-23); Calcium 8.9 mg/dl (8.6-10.3); Carbon Dioxide 29.0 mmol/L (21-32); Chloride 105.0 mmol/L (98-107); Creatinine Clr Calc Pharmacy 96.2 ml/min; Glucose 105.0 mg/dl (70-99(Fasting)); Magnesium 2.1 mg/dl (1.7-2.4); Potassium 4.0 mmol/L (3.5-5.1); Sodium 139.0 mmol/L (136-145)
[2024-11-19 07:27] LABS: ANTI-Xa, UFH(UnfractionatedHep 0.63 IU/ml (0.3-0.7)
--- NOTE | 2024-11-19 09:26 | Electrocardiogram Report ---
Test Reason : Blood Pressure : */* mmHG Vent. Rate : 77 BPM Atrial Rate : 77 BPM P-R Int : 182 ms QRS Dur : 82 ms QT Int : 370 ms P-R-T Axes : 26 -18 14 degrees QTcB Int : 418 ms Normal sinus rhythm Normal ECG When compared with ECG of 17-Nov-2024 12:38, No significant change was found Confirmed by Semaj Day ([id number]) on 11/19/2024 9:26:30 AM Referred By: REFERRED SELF Confirmed By: Semaj Day
[2024-11-19] MEDS: APIXABAN 5 MG TABLET PO SCH (10:04)
[2024-11-19] MEDS ORDERED: IBUPROFEN 600 MG TAB PO PRN (10:48)
--- NOTE | 2024-11-19 11:00 | Hospitalist Progress Note ---
Date of Service November 19, 2024 Assessment & Plan (1) Acute hypoxic respiratory failure: (2) Bilateral pulmonary embolism: (3) Pulmonary embolus with infarction: (4) Anxiety and depression: Plan Patient 59-year-old female with acute hypoxic respiratory failure due to what appears to be unprovoked bilateral pulmonary embolism. Transition from heparin to oral Eliquis Nonsteroidal anti-inflammatories for pleuritic pain Titrate oxygen down as able. Hopefully with some incentive spirometry and activity will be able to titrate off oxygen, if still requiring oxygen will plan for two-step oxygen testing tomorrow. With the findings of some inflammatory pleural effusion on CT will give 1 dose of Lasix, this may help with titrating oxygen to off Consider outpatient hematology consultation after discharge for unprovoked pulmonary embolism Admission and Anticipated Discharge Date Admission Date: November 17, 2024 Subjective Patient still complaining of a lot of pleuritic pain with deep inspiration. Still dependent on oxygen. Reports she is up-to-date on her cancer screening. No history that with provoked PE that she can think of Physical Exam Physical Exam: Constitutional: Alert, no acute distress HEENT: Mucous membranes moist. Lungs: Decreased breath sounds, crackles/rales at bases bilaterally CV: S1-S2, regular Abdomen: Soft, nontender, nondistended Extremities: No significant edema, negative Homans Neuro: No focal deficits Psych: Cooperative, normal mood Results & Data Results & Data Vital Signs (Past 12 Hours) Vital Signs Temp Pulse Pulse Resp BP Pulse Ox O2 Del Method 11/19/24 08:03 77 11/19/24 07:28 37.5 C 76 18 114/77 92 Nasal Cannula 11/19/24 04:14 37.0 C 78 18 120/79 91 Nasal Cannula 11/19/24 01:58 97 H 11/18/24 23:38 36.9 C 85 16 114/73 91 Nasal Cannula O2 Flow Rate 11/19/24 08:03 11/19/24 07:28 3 11/19/24 04:14 3 11/19/24 01:58 11/18/24 23:38 3 Diagnostic Findings Reviewed imaging, laboratory and diagnostic studies. Pertinent findings as below. Ultrasound lower extremity negative for DVT Echocardiogram shows normal ejection fraction, no evidence of pulmonary hypertension or right ventricular dysfunction reviewed CTA of the chest, some small pleural effusions Hypercoagulable state panel pending Troponins negative times all sets
[2024-11-19] MEDS: KETOROLAC TROMETHAMINE 15 MG/ML VIAL IV ONE (11:35)
[2024-11-19] MEDS: FUROSEMIDE INJ 20 MG/2 ML VIAL IV ONE (11:36)
[2024-11-20 06:39] LABS: Hematocrit (blood only) 37.3 % (37.0-47.0); Hemoglobin 12.3 g/dl (12.0-16.0); Immature Granulocytes # (auto) 0.03 K/uL (0.01-0.20); Immature Granulocytes % (auto) 0.4 %; Mean Corpuscular Hemoglobin 28.7 pg (25.0-34.0); Mean Corpuscular Volume 87.1 fL (80.0-100.0); Platelet Count 243 K/uL (130-400); RDW Standard Deviation 43.3 fL (36.4-46.3); Red Blood Count 4.28 M/uL (4.20-5.40); White Blood Count 6.97 K/ul (4.8-10.8)
[2024-11-20 07:26] LABS: ANTI-Xa, UFH(UnfractionatedHep > 1.50 IU/ml (0.3-0.7)
--- NOTE | 2024-11-20 12:05 | Discharge Summary ---
Discharge Summary Date of Service November 20, 2024 Principal Dx & Hospital Course #1 = Principal Diagnosis (1) Acute hypoxic respiratory failure: (2) Bilateral pulmonary embolism: (3) Pulmonary embolus with infarction: (4) Anxiety and depression: Plan Patient is a 59-year-old female presented to the emergency room with increasing shortness of breath. Initial evaluation in the emergency room was concerning for pneumonia. She was noted to be hypoxic. Patient was admitted to the hospital. She was initially started on antibiotics and supported with oxygen. Patient continued to have significant pleuritic pain with deep inspiration. CTA of the chest was subsequently performed and showed bilateral pulmonary emboli. There was no evidence of a infiltrative infectious process. There was some evidence of early developing pulmonary infarct and some small pleural effusions. She was subsequently started on IV heparin. Antibiotics were discontinued. Echocardiogram was performed and showed normal ejection fraction with no evidence of pulmonary hypertension. Ultrasound lower extremities were performed and showed no evidence of DVT. Patient did not relate any history as to a cause of a provoked PE. Subsequently it is then to be assumed that this is an unprovoked pulmonary embolism may need lifelong anticoagulation. Patient reports that she is up-to-date on her cancer screening. She continued to require oxygen. She was transition to [facility] for long-term anticoagulation. On the day of discharge her vital signs are stable. Two-step oxygen testing revealed that she needed 2 L of oxygen at rest and 3 L with activity. Case management was involved and help coordinate home oxygen. Her pleuritic pain was significantly improved with some anti-inflammatories. She was counseled as to the fact that this is now considered an unprovoked pulmonary embolism and may need lifelong anticoagulation. Hypercoagulation panel was sent and is pending. She will be discharged home to follow-up with her outpatient providers. Notes For Next Care Provider Consider outpatient hematology consultation for unprovoked pulmonary embolism Continue to evaluate ongoing needs for supplemental oxygen. Anticipate she will be able to be transition to room air in the next couple weeks. Medication Changes From Visit [facility] pulmonary embolism Aspirin discontinued Ibuprofen for pleuritic pain Admission HPI Per Admitting Provider 59 yo F w/ hx of dyslipidemia, asthma, anxiety/depression, prediabetes, who now presents with shortness of breath and found to have pneumonia. Pt was last time hospitalized here in April 2024 for dizziness/ stroke-like symptoms. She follows w/ PCP Dr. Hidalgo, in [place]. She reports she had rhinorrhea , at first clear then turned yellow and then cough with yellow sputum production. Initially felt improved, after she took some over the counter cough medications and Nyquil. Then on Tuesday she started to feel short of breath. Today she went to [facility] urgent care, and as she was hypoxic she was sent to the ED. She had CXR there that was concerning for left lower lobe pna. Currently in the ED pt is on 3L of suppl. O2. She feels fairly comfortable now. Says she works at [employer] so certainly could have sick exposures. Reports some left sided chest pain with deep inspiration otherwise denies any fever, chills, abd.pain, n/v. She had some diarrhea earlier , says it was from food, and not unusual for her. Admission Exam Per Admitting Provider See H&P Discharge Exam Constitutional: Alert, nontoxic, no acute respiratory distress HEENT: Mucous membranes moist. Lungs: Decreased breath sounds, few crackles at bases, no wheezes CV: S1-S2, regular Abdomen: Soft, nontender, nondistended Extremities: No significant edema Neuro: No focal deficits Psych: Cooperative, normal mood Updated Medication List Medication Instructions Recorded Confirmed Type atorvastatin 80 mg tablet 80 mg PO HS 10/11/23 11/18/24 History buspirone 7.5 mg tablet 7.5 mg PO TID 10/11/23 11/18/24 History venlafaxine 75 mg capsule,extended 75 mg PO HS 10/11/23 11/18/24 History release 24 hr apixaban 5 mg (74 tabs) tablets in See Rx Instructions .Route 11/19/24 Rx a dose pack ([employer] .COMPLEX #74 ea ibuprofen 600 mg tablet 600 mg PO Q8H PRN Pleuritic pain 11/20/24 Rx #12 tabs Hospital Stay Data Consultations 11/17/24 14:51 ED Decision to Admit Stat Diagnostic Imagining Performed 11/18/24 11:14 CT angio chest PE protocol Urgent 11/18/24 12:41 US venous doppler LE BI Routine Reviewed imaging, laboratory and diagnostic studies. Pertinent findings as below. WBC 6.9 Hemoglobin 12.3 Platelets of 243 Electrolytes within normal range Creatinine 0.73 Troponins negative times all sets Procalcitonin less than 0.02 Prothrombin gene mutation pending Factor V Leiden mutation pending Ultrasound lower extremity negative for DVT CTA of the chest showed bilateral segmental and subsegmental pulmonary emboli a small pleural effusion on the left with some atelectasis and a small hiatal hernia Pending Results Patient Have Any Pending Studies at Discharge: Yes Discharge Instructions Given to Patient (Per Discharging Provider) Slowly increase your activity as tolerated. Wear oxygen at all times Anticipate your oxygen needs will decrease as your lungs continue to heal Discussed with your PCP possible referral to hematology Total Time Total Time Spent Total Time Spent (In Minutes): 38
[2024-11-20] MEDS: FUROSEMIDE 20 MG TAB PO ONE (13:00)
== END 2024-11-20 14:01 | disposition home or self-care (01) | DRG 175 ==
LOC: ED 12:24 → SUATTDRO 14:52 → 2W 14:52 → 2N 11-18 01:21 → 3N 11-19 12:43